=== PATIENT | male | born 1985 | race Caucasian/White ===

== ENCOUNTER 2016-11-08 13:15 | Inpatient (IN) | payer OTHER ==
[~2016-11-08] VITALS: Ht 175.3 cm; Wt 117.5 kg
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
--- NOTE | 2016-11-08 13:55 | NUR ---
31 YEAR OLD MALE BIBA FROM HOME ACCOMPANIED BY JENNIFER FLOOD. PER LEGAL BILLER PT FATHER CALLED BECAUSE PT WAS YELLING AND PRESENTING WITH BIZARRE BEHAVIOR. PT ARRIVES TO ED ALERT WITH HANDCUFFS. PT COOPERATIVE WITH HOSPITAL STAFF TO CHANGE INTO BLUE SCRUBS. PT PLACED IN 4 POINT RESTRAINTS, EDUCATION DONE WITH PT REGARDING WHEN RESTRAINTS CAN BE REMOVED. PT LAYING ON STRETCHER WITH HIS EYES CLOSED, MEDICATED PER EMAR.
[2016-11-08 14:21] LABS: ABSOLUTE BASOPHIL COUNT 0 /CUMM (0.0-0.2); ABSOLUTE EOSINOPHIL COUNT 0.1 /CUMM (0.0-0.7); ABSOLUTE GRANULOCYTE CT 9.2 /CUMM (1.4-6.5); ABSOLUTE LYMPH COUNT 1.6 /CUMM (1.2-3.4); ABSOLUTE MONOCYTE COUNT 0.9 /CUMM (0.10-0.60); BASOPHIL % 0.2 % (0.0-2.0); EOSINOPHIL % 0.8 % (0-5); GRANULOCYTE % 77.7 % (42.2-75.2); HEMATOCRIT 46.5 % (42-52); MEAN CORPUSCULAR HGB 30.3 PG (27.0-31.0); MEAN CORPUSCULAR HGB CONC 33.5 G/DL (33.0-37.0); MEAN CORPUSCULAR VOLUME 90.4 FL (80.0-94.0); MEAN PLATELET VOLUME 6.8 FL (7.4-10.4); PLATELET COUNT 280 /CUMM (130-400); RBC DISTRIBUTION WIDTH 12.4 % (11.5-14.5); RED BLOOD CELL CT 5.14 /CUMM (4.70-6.10); WHITE BLOOD CELL COUNT 11.8 /CUMM (4.8-10.8)
[2016-11-08 14:36] LABS: LITHIUM 0.2 mmol/L (0.6-1.2)
--- NOTE | 2016-11-08 15:27 | NUR ---
PT NOTED TO BE SLEEPING, EVEN, REGULAR RESPIRATIONS NOTED. RESTRAINTS DISCONTINUED AT THIS TIME. PT OPENED EYES TO VERBAL STIMULI BUT HAS NOT VERBALLY RESPONDED TO THIS RN.
--- NOTE | 2016-11-08 16:07 | NUR ---
PT FAMILY TO BEDSIDE WITH SOBIA SANCHEZ. PT CONTINUES TO SLEEP ON STRETCHER, OFFERS NO COMPLAINTS AT THIS TIME.
--- NOTE | 2016-11-08 17:21 | NUR ---
PT FATHER OSMAN LEFT NUMBER TO CONTACT WITH UPDATES [phone]. PT SISTER GEORGE [phone]. PT CONTINUES TO SLEEP ON STRETCHER, SITTER CONTINUES AT BEDSIDE FOR SAFETY.
--- NOTE | 2016-11-08 18:08 | NUR ---
ASSUMED CARE OF PT. PT IN ROOM 13. PT ASLEEP, EASILY AROUSABLE.
--- NOTE | 2016-11-08 18:45 | NUR ---
PT AWAKE FOR VITALS, COMPLAINS OF HIS BONES HURTING. PT CALM AND COPERATIVE AT THIS TIME. SITTER REMAINS.
--- NOTE | 2016-11-08 18:52 | NUR ---
PER SAFETY MONITOR. PT UP TO BATHROOM. DID NOT OBTAIN URINE SPECIME
--- NOTE | 2016-11-08 21:34 | NUR ---
PT CONTINUES TO SLEEP. RESPIRATIONS EVEN AND UNLABORED
--- NOTE | 2016-11-08 21:39 | NUR ---
EASILY AROUSABLE. VITALS TAKEN. PT REMINDED WE NEED URINE SPECIMEN. INFORMED DINNER IS AVAILABLE TO HIM. PT GOING BACK TO SLEEP
--- NOTE | 2016-11-08 23:02 | NUR ---
ASSUMED CARE OF PT PER TOI MILIAN. PT SLEEPING WITH RR, TOSSING AND TURNING. SITTER IN PLACE AT DOOR, WILL CONTINUE TO MONITOR
--- NOTE | 2016-11-08 23:03 | NUR ---
PT AND SITTER ARE INFORMED THAT URINE SAMPLE IS NEEDED.
--- NOTE | 2016-11-09 00:13 | NUR ---
PT SLEEPING, REGULAR RESPIRATIONS NOTED. SITTER REMAINS IN ATTENDANCE
--- NOTE | 2016-11-09 00:52 | NUR ---
PT IN RM UP AND EATING DINNER, PT GIVEN WATER BOTTLES AND PT AWARE WE NEED A URINE SAMPLE.
--- NOTE | 2016-11-09 01:38 | NUR ---
PT COUGHING AND SPITTING ON GROUND, THIS RN GAVE PT A PITCHER OF WATER AND ROBITUSSIN AC 10ML PER EMAR.
--- NOTE | 2016-11-09 01:54 | NUR ---
RANDI REPORTS PT TO BE AGITATED AND SPEAKING LOUDLY WAKING THE OTHER PSYCH PTS UP, THIS RN WENT AND SPOKE WITH PT, KONG PETERSON GAVE PT MAGAZINES TO READ. THIS RN OFFTERED PT TV BUT PT STATED HE WOULD LIKE TO READ.
--- NOTE | 2016-11-09 03:08 | NUR ---
PT UP WALKING ABOUT RM, SPITTING ON FLOOR. WILL CONTINUE TO MONITOR, SITTER IN PLACE IN
--- NOTE | 2016-11-09 03:23 | NUR ---
PATIENT CONTINUES TO SPIT ON FLOOR AND INTO BUCKET ON FLOOR. PATIENT UNABLE TO BE VERBALLY DEESCALATED AT THIS TIME. SECURITY AND MD TO BEDSIDE. PATIENT REQUESTING MULTIPLE PITCHERS OF WATER, COMING IN AND OUT OF ROOM MULTIPLE TIMES DESPITE REDIRECTION AND SETTING LIMITS BY STAFF (THIS RN AND GABBIE RN). PATIENT MEDICATED PER EMAR BY GABBIE AND JEREMIAH. SITTING ON BED W/ SECURITY AND SITTER AT BEDSIDE, PATIENT REMAINS VERY AGITATED. WILL CONTINUE TO MONITOR.
--- NOTE | 2016-11-09 04:44 | NUR ---
PT SNORING WITH RR, SLEEPING ON LEFT SIDE. SITTER IN PLACE, WILL CONTINUE TO MONITOR
--- NOTE | 2016-11-09 05:23 | NUR ---
PT SLEEPING WITH RR, SNORING AND SLEEPING NOW ON RIGHT SIDE. SITTER IN PLACE, WILL CONTINUE TO MONITOR
--- NOTE | 2016-11-09 06:26 | NUR ---
PT SLEEPING WITH RR, TOSSING AND TURNING, SNORING. CHEST RISE AND FALL NOTED. PT INFORMED BREAKFAST WAS ORDERED. SITTER IN PLACE IN
--- NOTE | 2016-11-09 08:18 | NUR ---
CRISIS AT BEDSIDE.
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
--- NOTE | 2016-11-09 09:02 | NUR ---
DR. CHAPARRO AWARE PT IS TACHYCARDIC. EKG TO BE DONE.
--- NOTE | 2016-11-09 09:39 | NUR ---
PT CALM AND COOPERATIVE, DENIES SI OR HI. EKG DONE FOR TACHYCARDIA. DR. CHAPARRO AWARE. PER ORDER, IV EST, NS LITER BOLUS INFUSING NOW. WILL CONTINUE TO MONITOR.
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
--- NOTE | 2016-11-09 11:56 | NUR ---
PATIENT SHOWERED AND BED CLEANED WITH NEW LINEN
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
--- NOTE | 2016-11-09 12:27 | NUR ---
PT CONTINUES TO COME OUT OF ROOM AND NEEDS TO BE CONTINUALLY REDIRECTED TO RETURN TO ROOM.
--- NOTE | 2016-11-09 14:15 | NUR ---
REPORT GIVEN TO UMER CM.
[2016-11-09 14:51] VITALS: BP 157/79
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
[2016-11-09 19:46] VITALS: BP 158/96
[2016-11-09 21:25] VITALS: BP 153/81
--- NOTE | 2016-11-09 21:57 | NUR ---
Pt is irritable and intrusive towards his peers and staff. Pt affect is flat came for vital signs appetite is good. Pt has behavioral issues during the nenita shift. Will continue to monitor the pt overnight.
--- NOTE | 2016-11-09 23:53 | NUR ---
DURING WRAP UP, PT LEANING BACK IN HIS CHAIR AND FELL TO FLOOR. NO INJURY NOTED OR REPORTED. PER AMIAgustín MHW, PT, AND OTHER PATIENTS PRESENT, PT DID NOT HIT HEAD EITHER. DR MA AND DR AMOS MADE AWARE. POST FALL ASSESSMENT NORMAL. PT ASSESSED BY DR AMOS. NO ORDERS PERTAINING TO FALL. HOWEVER, PT WITH AN OPEN BLISTER ON INSIDE OF RIGHT HAND WHICH DR AMOS SAID SHE WOULD ORDER TYLENOL INSIDE OF HAND SORE. (BLISTER PRESENT PRIOR TO FALL) WITH INCREASINGLY DISRUPTIVE AND PSYCHOTIC BEHAVIOR. SHOUTING OUT, MAKING ANIMAL LIKE SOUNDS, STARING, MAKING DELUSIONAL STATEMENTS, RESPONDING TO INTERNAL STIMULI. APPEARS TO BE STRUGGLING WITH WHAT IS REALITY AND WHAT ISN'T. WOULD QUESTION IF SOUNDS OR WORDS SPOKEN ON UNIT WERE ACTUALLY OCCURING. HAD PERIODS OF MENTAL CLARITY BUT WOULD QUICKLY REVERT BACK TO PSYCHOTIC STATE. THOUGHT BLOCKING NOTED. PT ANXIOUS AND RESTLESS. PT PUT ON 1:1 FOR SAFETY. CHARGE NURSE ADMINISTERED ZYPREXA 5MG PRN AND RECEIVED ANOTHER ORDER FROM DR MA FOR ATIVAN 2 MG PO WHICH WAS ALSO ADMINISTERED. DUE TO MINIMAL EFFECT IN MANAGING AGITATION AND PSYCHOSIS, THORAZINE 25MG ADMINISTERED PER DR MA. PER DR MA THORAZINE MAY BE ADMINISTERED AFTER 30 MINUTES IF AGITATION CONTINUES.
--- NOTE | 2016-11-10 00:17 | NUR ---
PT NOW SLEEPING. SITTER AT BEDSIDE.
--- NOTE | 2016-11-10 04:38 | NUR ---
0015 PT WAS FAST ASLEEP AFTER MEDICATION GIVEN AT 2345.
[2016-11-10 06:13] VITALS: BP 152/86
--- NOTE | 2016-11-10 06:19 | NUR ---
0545 PT AWAKE GETTING DRESSED WALKING OUT OF HIS ROOM WITH SITTER AND MHW WANTING WATER, WALKED INTO KITCHEN TOOK OUT A PLASTIC KNIFE OUT OF THE DRAW ATTEMPTED BY STAFF TO REMOVE FROM PT. HE REFUSED SECURITY CALLED PT. BECOMING AGITATED PUSHING STAFF YELLING SPITTING THORAZINE 25MG IM GIVEN. 0600 DR. MA CALLED ORDERED 4 POINT RESTRAINTS ATIVAN 2MG AND HALDOL 2.5MG ALL ORDERS FOLLOWED. VSS 152/86 HR 120 TEMP 97.8 EXPLAINED TO PT. THE NEED FOR ALL INTERVENTIONS AT THIS TIME UNTIL HIS BEHAVIOR IS UNDER CONTROL. PT CONTIUES TO YELL OUT SINGING CONVERSTAION CONFUSED.
--- NOTE | 2016-11-10 06:24 | History & Physical ---
General Information and HPI MD Statement: I have seen and personally examined OSMAN AGUAYO JR and documented this H& P. The patient is a 31 year old M who presented with a patient stated chief complaint of [medical evaluation]. Source of Information: patient Exam Limitations: unable to give history, clinical condition History of Present Illness: Patient is admitted in Inpatient Psychiatry for screaming, incoherent talking, agitation. Patient has history of schizoaffective disorder, PTSD. When I examined patient he had intermittent stating spells, sometimes responding appropriately otherwise no appropriate answers. After admission in Inpatient Psychiatry patient had accidental fall, while he was sitting on a chair he pushed the chair with his legs and fell backwards, no obvious trauma or injury. Patient denies any pain, headache, dizziness, blurry vision, loss of consciousness. Complete 14 point ROS noncontributory. Patient complains of pain near superficial denuded skin on her right palm. 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 Home Smoking Status: Never Smoked ETOH Use: denies use Illicit Drug Use: denies illicit drug use Living Will? unknown Functional Ability ADLs Independent: dressing, eating, toileting, bathing. Ambulation: independent Sexual History Past Sexual History Unobtainable at this time Employment History Employment Employed Profession/Employer [employer] Review of Systems Review of Systems Constitutional: Reports: no symptoms. EENTM: Reports: no symptoms. Cardiovascular: Reports: no symptoms. Respiratory: Reports: no symptoms. GI: Reports: no symptoms. Genitourinary: Reports: no symptoms. Musculoskeletal: Reports: no symptoms. Skin: Reports: lesions (on right hand). Neurological/Psychological: Reports: no symptoms. Hematologic/Endocrine: Reports: no symptoms. Exam & Diagnostic Data Last 24 Hrs of Vital Signs/I&O Vital Signs Date Time Temp Pulse Resp B/P Pulse O2 O2 Flow FiO2 Ox Delivery Rate 11/10 0613 97.8 120 18 152/86 99 11/09 2125 97.1 100 18 153/81 11/09 1946 98.8 72 158/96 11/09 1451 96.9 88 157/79 11/09 1358 96.1 91 18 142/79 96 Room Air 11/09 1334 96.6 103 18 149/84 98 Room Air 11/09 1104 96.5 96 18 140/81 97 Room Air 11/09 0844 96.5 120 18 142/88 99 Room Air 11/09 0624 97.5 118 20 117/73 100 Room Air Intake & Output 11/09 1600 11/10 0000 11/10 0800 Intake Total Output Total Balance Patient 117.48 kg 117.48 kg Weight Physical Exam General Appearance Alert, Oriented X3, No Acute Distress Skin small denuded area on her right forearm, no evidence of infection, mild tenderness, nearby joint mobility intact. HEENT Atraumatic, PERRLA, EOMI, Mucous Membr. moist/pink Neck Supple, No JVD, No thryomegaly, +2 Carotid Pulse wo Bruit Lymphatic Cervical nl Cardiovascular Regular Rate, Normal S1, Normal S2, systolic murmur in pulmonary area Lungs Clear to Auscultation, Normal Air Movement Abdomen Normal Bowel Sounds, Soft, No Tenderness, No Hepatospenomegaly, No Masses Neurological Exam Findings: Normal Gait, Normal Speech, Strength at 5/5 X4 Ext, Normal Tone, Sensation Intact, Cranial Nerves 3-12 NL, Reflexes 2+ Cranial Nerves II through XII: Intact, no deficit Extremities No Clubbing, No Cyanosis, No Edema, Normal Pulses, No Tenderness/ Swelling Vascular Normal Pulses, Pulses Symmetrical Diagnostic Data EKG Results Reviewed Assessment/Plan Assessment: #1 suspected schizoaffective disorder: Agree with psychiatrist treatment #2 mechanical fall: No obvious trauma, neurological examination intact. #3 small lesion on right palm: No evidence of infection, when necessary Tylenol for pain As Ranked By This Provider Problem List: 1. Psychosis 2. Schizoaffective disorder Miscellaneous Miscellaneous Documentation Attending Case Discussed With: GEETA CHACON MD Primary Care Physician: ANDREIA CLARK Patient sees these Specialists Not known Level of Patient Care: ADAMA Oneil
--- NOTE | 2016-11-10 06:53 | Admission Certification ---
Admission Certification Certification Statement - As attending physician, I certify that at the time of - admission, based on clinical presentation, severity of - symptoms, need for further diagnostic testing and - therapeutic interventions, and risk of adverse outcomes - without in-hospital treatment, in my clinical assessment, - this patient requires an acute hospital stay for a minimum - of two nights or longer. I have also considered psychsocial - factors such as support system, advanced age, financial - issues, cognitive issues, and failed out-patient treatments, - past re-admission history, safety of patient, and lack of - compliance as applicable. Specific rationale supporting this admission is: psychosis
--- NOTE | 2016-11-10 07:08 | NUR ---
FACE TO FACE AT 0700 PT. LESS AGITATED WHEN ASKED IF HE IS FEELING A LITTLE BETTER REPLIED "YES". B/P 149/88 HR 106 RR 20 TEMP 97.8. SITTER REMAINS AT BEDSIDE CIRCULATION CHECK ALL FOUR EXTREMITIES WNL. ABLE TO MOVE EXTREMITES. PT ASSISTED TO VOID AND URINATED IN URINAL. EXPLAIN TO PT. WHEN BEHAVIOR IS APPROPRIATE HE WILL BE RELEASED.
[2016-11-10 07:14] VITALS: BP 149/88
--- NOTE | 2016-11-10 07:32 | NUR ---
0715 NOTIFIED PT. FATHER OSMAN AGUAYO REGARDING NEED FOR RESTRAINTS AND MEDICATIONS. PT. AGREED WE NEED TO DO WHAT IS SAFE FOR PT. AND THE UNIT. WILL BE IN TO SEE PT. LATER TODAY.
[2016-11-10 12:17] VITALS: BP 126/99
--- NOTE | 2016-11-10 13:10 | CP SOUTH PROGRESS NOTE PSYCH ---
Psych (Inpt) Progress Note Progress Note Include the following elements, when applicable: Involvement in the active treatment of the patient with behavioral observations of the patient and the patient's response to the treatment. Review of the ongoing treatment process in the context of the treatment plan. Indication of how multi-disciplinary staff members are carrying out the treatment plan. Plans for future interventions and recommendations for revision of the treatment plan. Liaison with other physicians/providers. Progress Note: Admission documentation reviewed, and discussed with nursing staff. Joselo is a 31-year-old man with history of schizoaffective disorder who was admitted to the unit yesterday afternoon for psychiatric decompensation marked by psychosis and agitated behavior. On the unit he became increasingly agitated with disturbed thought process, became threatening, requiring acute administration of medications. Upon awakening this morning he continued to threaten staff and others, spat at others, was not redirectable, and ultimately required application of restraints for patient's safety and the safety of others on the unit. On my assessment this afternoon, the patient is mildly sedated, intermittently awake, however during those periods the patient remains highly tangential, pressured, and is unable to understand the requirements for being completely restraint free. That being said, we are attempting to reduce his level of restraint as clinically appropriate. He is unable to meaningfully engage in a psychiatric interview at this time. MSE: Poorly groomed, overweight, man dressed in overalls, supine on hospital bed in leather restraints. When he is awake, he is uncooperative, with poor eye contact. His speech is garbled. He does not respond to questions regarding mood. His affect is bizarre, and labile. His thought processes tangential bordering on loose, thought content is difficult to decipher, cognition is not intact, and insight and judgment are poor. Vitals and labs reviewed. Vitals are most notable for persistent mild tachycardia but he is otherwise afebrile with normal blood pressure and appropriate respiration rate. There are no new laboratory results today, lithium level of less than 0.2 noted on admission. EKG was obtained today and notable for a QTC in the 450s, and a rhythm of sinus tachycardia. A/P: 31-year-old man with history of schizoaffective disorder, presenting with symptoms consistent with acute gustavo in the context of discontinuation of his outpatient medications. -For acute gustavo, will continue Zyprexa and Ativan as needed based on clinical symptoms. Concurrently, will uptitrate lithium carbonate, currently at 450 mg twice a day. If requires IM medications because refusing PO, will administer haldol and ativan. -For tachycardia, this is most likely the result of reduced by mouth intake given his psychiatric status. We will continue to attempt to hydrate him by mouth and monitor his vitals closely. As above, there is no EKG suggestion of a more nefarious cause of his tachycardia at this time. -Will attempt to use both nonpharmacological and pharmacological interventions to reduce or eliminate the need of restraints. He will be removed from restraints as soon as it is deemed safe to both the patient and others on the unit. -Vital signs and other clinical indices will be continuously reviewed all patient is in restraints. We'll continue the one-to-one sitter while patient is in restraints as well as in the early post restraint for safety. -Family was updated regarding patient's clinical situation by nursing staff.
--- NOTE | 2016-11-10 13:13 | NUR ---
1:1 maintained throughout shift thus far for safety and order was changed to male only d/t past history of aggression and intensity. Pt has been consistently offered and given fluids, breakfast, lunch, provided a urinal and offered bed farias when applicable (did refuse this however). At 1000am order was renewed and EKG perform and Dr. Catalan saw pt in room & EKG with no further orders at that time. At about 12:15pm vital signs: b/p 126/99, hr 116, temp 97.[address] Catalan aware and fluids/water pushed. Due to pt gradually becoming more calm, cooperative, compliant and some clearing noted, restraints decreased (in a safe manner) from 4 point to 2 point @ 12:15pm, MD aware and new order placed and documented. Pt demonstrating +CMS, tightness of restraint cuffs appropriate, no complaints offered, no injuries noted or reported, + active ROM.
--- NOTE | 2016-11-10 13:57 | NUR ---
Pt laying in bed, able to adjust self and verbalize needs, current has 1 hard right wrist restraint and one hard left leg restraint, provided fluids, food, urinal and bed farias throughout, no complaints or injuries reported or noted. + CMS, + active ROM, vital stable within defined limits and MD aware with no further orders. Pt remains delusional - when evaluating the pt for need to continue 2 point restraints pt would answer questions in a slightly agitated fashion, tangential, disorganized/disturbed process and team is overall unable to accurate stanislaw intent/motivation/ if the patient understands what actually would constitutes safe boundaries, limits and behavior nevermind what actual caused the application of the restraints. Dr. Catalan was present during the 1400 [id number] as well and in agreeance with both RNs to leave the pt in 2 point restraints at this time d/t the above state and will continue to monitor and re-assess ongoing.
--- NOTE | 2016-11-10 15:34 | NUR ---
PATIENT REMOVED WRIST RESTRAINT. PHYSICALLY RESISTED ATTEMPTS TO REAPPLY, GRABBED THIS WROTERS HAND SEVERAL TIMES WHILE ATTEMPTING TO REAPPLY RESTRAINT SECURITY CALLED AND PRVIDED ASSISTANCE, RESTRAINT REAPPLIED WITHOUT FURTHER INCIDENT.
[2016-11-10 16:29] VITALS: BP 138/70
[2016-11-10 20:01] VITALS: BP 154/86
--- NOTE | 2016-11-10 21:05 | NUR ---
AT [address] MA PATIENT RESTRAINTS WERE DISCONTINUED, HE WAS LYING QUIETLY AND WAS COMPLIANT WITH STAFF ORDERS; HE WAS CALM AND COOPERATIVE WITH VITAL SIGNS. HOWEVER, WHEN PATIENT STOOD UP HE WAS EXTREMELY UNSTEADY ON HIS FEET, SWAYING AT TIMES; WITH STAFF ASSISTANCE HE WALKED TO THE BATHROOM AND URINATED AND HAD A BOWEL MOVEMENT; HE THEN ATE HIS DINNER AND BRUSHED HIS TEETH; DURING THESE ACTIVITIES THE PATIENT HAD TO BE CONTINUALLY REMINED TO WALK SLOWLY AND WAS INCREASILY ERRATIC IN HIS MOVEMENTS, SWAYING AT TIMES; AT 2044 PATIENT SUDDENLY RAN TOWARDS HIS SITTER, DODGED HIM, AND RAN INTO HIS ROOM; THE PATIENT WAS INSTRUCTED BY STAFF TO LIE DOWN AND TRY TO SLEEP DUE TO HIS FALL RISK; HE LIED DOWN BRIEFLY BUT POPPED BACK UP AND WAS NOT RESPONDING TO STAFF DIRECTIONS FOR HIS SAFETY; AT THIS POINT PATIENT WAS PLACED BACK IN FOUR POINT RESTRAINTS WITH THE HELP OF THE 1:1 SITTER AND SECURITY STAFF; DR. MA GAVE THE ORDER FOR FOUR POINT RESTRAINTS; VITAL SIGNS AT 1999 WERE STABLE; SKIN INTACT; RESPIRATORY STATUS WNL WITH EVEN REGULAR RESPIRATIONS, BUT SLIGHTLY FAST AT 24 BREATHS PER MINUTE; PATIENT WILL BE MONITORED CAREFULLY FOR ANY CHANGES IN MEDICAL STATUS.
--- NOTE | 2016-11-10 21:48 | NUR ---
FACE TO FACE ENCOUNTER: PATIENT IN FOUR POINT HARD RESTRAINTS, RESTLESS, CONFUSED; FLUIDS GIVEN AFTER PATIENT YELLED "NURSE!" AND REQUESTED WATER; AFTER BEING GIVEN WATER, PATIENT ASKED FOR "NURSE!" AGAIN, BUT WAS MUMBLING, AND DID NOT RESPOND TO STAFF COHERENTLY; PATIENT CURRENTLY STABLE; 4 POINT RESTRAINTS COINTUING FOR SAFETY OF PATIENT AND OTHERS.
--- NOTE | 2016-11-10 22:32 | NUR ---
PATIENT YELLING OUT, SINGING INCOHERENTLY. PRN MEDICATIONS WILL BE GIVEN.
--- NOTE | 2016-11-11 00:12 | NUR ---
PATIENT STILL YELLING AT TIMES, NOT RESPONDING WELL TO STAFF ATTEMPTS TO REDIRECT; HE PULLED HIS ARM OUT OF ONE OF HIS RESTRAINTS; RESTRAINT TIGHTNESS WAS READJUSTED, CIRCULATION CHECK DONE; PER ORDER FROM DR. MA, THORAZINE 100MG PO AND 50MG BENADRYL PO WERE GIVEN, WITH A SECOND THORAZINE DOSE AVAILABLE AFTER 2 HOURS IF THE PATIENT BECOMES AGITATED; PATIENT COMPLIANT WTIH TAKING MEDICATION; 1:1 SITTER MONITORING AT ALL TIMES
--- NOTE | 2016-11-11 01:50 | NUR ---
PER ORDER OF DR. MA, RESTRAINTS REDUCED TO LEFT WRIST AND RIGHT ANKLE, PATIENT IS CALM, AND IS NO LONGER YELLING; HE IS RESTING AT THIS TIME; WHEN AWAKE HE IS STILL CONFUSED, MAKING INCOHERENT STATMENT, AND IS UNABLE TO CONTRACT FOR SAFETY WITH STAFF, OR FOLLOW BASIC SAFETY DIRECTIONS TO PROTECT HIMSELF DUE TO HIS HIGH FALL RISK STATUS; CIRCULATION CHECK DONE; SKIN INTACT; PATIENT RESPIRATORY STATUS WNL.
--- NOTE | 2016-11-11 03:13 | NUR ---
PATIENT STILL MUMBLING INCOHERENTLY AT TIMES, NOT ABLE TO RECEIVE AND PROCESS RESTRAINT DISCONTINUATION CRITERIA.
--- NOTE | 2016-11-11 05:37 | NUR ---
TWO WAY RESTRAINT ORDER RENEWED WITH DR. MA, PATIENT REMAINS CONFUSED AND UNABLE TO RESPOND TO STAFF SAFETY INSTRUCTIONS PER CRITERIA FOR RELEASE; RESPIRATORY STATUS WNL, SKIN INTACT, NORMAL RANGE OF MOTION IN ALL FOUR LIMBS, +2 CIRCULATION TO ALL FOUR LIMBS; 1:1 SITTER MONITORING AT ALL TIMES.
--- NOTE | 2016-11-11 07:07 | NUR ---
PATIENT SAT UP MUCH POSSIBLE AND TRIED TO GET UP OFF OF THE BED DESPITE THE TWO WAY RESTRAINTS, STILL APPEARS SEDATED, FELL BACK ASLEEP IMMEDIATELY AFTER STAFF ASSISTED HIM BACK ONTO THE BED.
[2016-11-11 08:11] VITALS: BP 151/88
--- NOTE | 2016-11-11 09:07 | NUR ---
after conversation with patient by both RN's present on unit it was felt that restraints could be discontinued. Was able to verbalize and agree to follow directions from staff and be responsible for his own behaviors. Verbalized understanding that running is not allowed at any time on unit and screaming is not an appropriate behavior. Is A&Ox3 and has been compliant with all medications. He offered and shook hands with this telegraphic typewriter operator which seemed an appropriate response based on what is known aboout patients character. Discussed same with Dr. Catalan who is on-call psychiatrist. 1:[address] in [address].
--- NOTE | 2016-11-11 10:19 | CP SOUTH PROGRESS NOTE PSYCH ---
Psych (Inpt) Progress Note Progress Note Include the following elements, when applicable: Involvement in the active treatment of the patient with behavioral observations of the patient and the patient's response to the treatment. Review of the ongoing treatment process in the context of the treatment plan. Indication of how multi-disciplinary staff members are carrying out the treatment plan. Plans for future interventions and recommendations for revision of the treatment plan. Liaison with other physicians/providers. Progress Note: Chart reviewed, discussed progress with nursing staff. Interviewed patient this morning. Yesterday evening and overnight patient remained manic, highly disregulated, grandiose, hypersexual, screaming in the milieu. His thought process evidenced significant paranoid ideation. Throughout yesterday afternoon and evening he required significant amounts of neuroleptic and benzodiazepines to control his behavior and reduce the risk of his harming himself and others on the unit. His behavior improved into the evening, restraints were able to be reduced to 2 points, and this morning, the patient was more lucid, cooperative, was able to verbalize his understanding of requirements for coming out of the restraints and remaining out of restraints. Restraints were removed this morning. Joselo remains somewhat sedated and groggy, and continues to have a one-to-one safety monitor. On interview today, Joselo is remarkably less labile, grandiose, or delusional. He is oriented to name and place. His able to appropriately make his needs known. He currently demonstrates no evidence of agitation. He denies specific medication side effects aside from grogginess. He denies SI or HI, and denies overt psychotic symptoms. MSE: Adequately groomed overweight man wearing hospital scrubs, ambulating with walker. Cooperative with interview, good eye contact, speech was not pressured, normal volume, prosody, tone, amount. Mood was "okay ", affect was mildly constricted, but full range, non-labile. Thought process was mildly impoverished. Content without SI or HI. Denies current perceptual disturbances. Cognition he was grossly alert and oriented to name and place. His insight and judgment remain limited. Vitals reviewed. These are notable for persistent mild tachycardia and mild hypertension. His respiratory rate was noted to be mildly elevated overnight with normal oxygen saturation. There are no new laboratory results today. A/P: Most likely explanation for symptoms and behavior over the past few days remains acute manic episode. Will continue to manage symptoms of gustavo with neuroleptic and benzodiazepines, as lithium is up titrated. Will schedule Zyprexa and Ativan for now, with additional Zyprexa and Ativan as needed for agitation, and use Thorazine for severe agitation requiring prompt sedation to maintain patient and unit safety. Will continue lithium with the evening dose larger than the morning dose. Goal Will be to keep patient engaged in the milieu, safe, out of restraints. Continue one-to-one safety monitor for now. Check lithium level Saturday or morning.
[2016-11-11 12:13] VITALS: BP 156/96
--- NOTE | 2016-11-11 14:07 | NUR ---
PATIENT CONTINUES TO DO WELL. GIVEN PRN FOR SOME BRIEF ACTING OUT. NEEDS REDIRECTION AT TIMES WITH GOOD RESPONSE. DENIED THOUGHTS OF SELF HARM WHEN ASKED.
[2016-11-11 15:44] VITALS: BP 159/92
[2016-11-11 19:47] VITALS: BP 153/82
--- NOTE | 2016-11-11 20:17 | NUR ---
PT. OUT IN COMMUNITY COOPERATIVE TALKING WITH STAFF SITTER BY HIS SIDE. VSS, STARTED TO GET A LITTLE LOUD MEDICATED WITH ATIVAN AND ZYPREXA AND EXPLAINED JUST TO RELAX HE AGREED IT WAS NEEDED STATED" FEELING A LITTLE ANXIOUX".
--- NOTE | 2016-11-12 01:41 | NUR ---
183 PT. STATING HE WAS FEELING ALITTLE ANXIOUS MEDICATED WITH ATIVAN 2MG AND ZYPREXA 5MG PO. 1929 PT. SLEEPING SITTER AT BEDSIDE. 2229 PT. BEGAN TALKING LOUD GETTING RESTLESS MEDICATED WITH ATIVAN 2MG AND ZYPREXA 5MG PO. 2329 PT. WENT BACK TO ROOM QUIET. 0 PT. AWAKE TO BATHROOM CONFUSED REFUSING TO GO BACK TO ROOM AMBULATING AROUND THE UNIT SITTER REMAINS BY SIDE NOT DUE FOR ATIVAN AND ZYPREXA MEDICATED WITH THORAZINE 50MG PO AND ENCOURAGED PT. TO GO BACK TO ROOM TO SLEEP.
--- NOTE | 2016-11-12 03:13 | NUR ---
0300 PT FINALLY FELL ASLEEP IN TV ROOM "CAN"T SLEEP IN THE BED TO UNCOMFORTABLE" SITTER AT SIDE.
--- NOTE | 2016-11-12 04:03 | NUR ---
0300 PT. SLEPT FROM [id number] THEN AGAIN GETTING A LITTLE LOUD 0355 MED WITH ATIVAN 2MG AND ZYPREXA 5MG PO.
[2016-11-12 07:42] VITALS: BP 150/94
--- NOTE | 2016-11-12 11:55 | CP SOUTH PROGRESS NOTE PSYCH ---
Psych (Inpt) Progress Note Progress Note Include the following elements, when applicable: Involvement in the active treatment of the patient with behavioral observations of the patient and the patient's response to the treatment. Review of the ongoing treatment process in the context of the treatment plan. Indication of how multi-disciplinary staff members are carrying out the treatment plan. Plans for future interventions and recommendations for revision of the treatment plan. Liaison with other physicians/providers. Progress Note: [I discussed this patient's progress to date, current mental status, treatment process in the context of the treatment plan, and discharge planning with staff/ team in the daily morning inpatient team meeting. I also met with the patient myself in individual session.] SUBJECTIVE: "Hi, your hair smells good." OBJECTIVE: Current Medications Sig/Rosita Start time Last Medication Dose Route Stop Time Status Admin Chlorpromazine 50 MG Q4P PRN 11/11 1000 DC 11/12 PO 0140 Inger Carbonate 300 MG 0811/12 0800 AC 11/12 PO 0801 Inger Carbonate 600 MG AT BEDTIME 11/11 2200 AC 11/11 PO 2110 Lorazepam 1 MG TID 11/12 1000 AC 11/12 PO 0801 Lorazepam 2 MG TID 11/10 2200 DC 11/11 PO 11/12 0005 2110 Lorazepam 2 MG Q4-PRN PRN 11/10 1715 AC 11/12 PO 1105 Olanzapine 10 MG 11/13 0800 AC PO Olanzapine 5 MG 0811/12 0800 DC 11/12 PO 0801 Olanzapine 10 MG AT BEDTIME 11/11 2200 AC 11/11 PO 2110 Olanzapine 5 MG Q4 HRS NEEDED PRN 11/10 1715 AC 11/12 PO 1105 Vital Signs Date Time Temp Pulse Resp B/P Pulse O2 O2 Flow FiO2 Ox Delivery Rate 11/12 1217 92 151/95 11/12 0742 97.4 92 150/94 11/11 1947 97.6 92 153/82 11/11 1544 100 159/92 ASSESSMENT: Chart, labs, EKGs reviewed. Patient is a 31-year old, single, male with history of schizoaffective disorder who was admitted to [facility] from ED on 11/09/16 for psychiatric decompensation marked by psychosis and agitated behavior secondary to medication nonadherence. Over the weekend, the patient was agitated and threatening and required 4-point locking restraints and emergency medications for safety to self and others. Outpatient medications (prescribed by Dr. Gibson per med claim history): Inger 300mg BID (pt reported self-d/c'ed d/t wt gain/increased appetite) Zyprexa 5mg daily (stopped) Per MAR, patient receives the following medications over the weekend for stabilization: 11/09/16 ( ED): Haldol 5mg IM, Benadryl 50mg IM, Ativan 4mg (2mg IM and 2mg PO) . 11/10/16: Zyprexa 25mg (po/ divided doses/ prn + standing), Ativan 8mg (po/ divided doses/ prn + standing). 11/11/16: Zyprexa 25mg (po/ divided doses/ prn + standing), Ativan 10mg (po/ divided doses/ prn + standing), Thorazine 150mg (po/divided doses/ prn). On encounter today, patient observed sitting in room in good physical/behavioral control. Male 1:1 sitter standing outside room. Patient was A&O to person, place , time and situation. Reported being brought to ED by police after his cousin called the police because she was scared as patient had been "blessing the house " per pt report. Patient could not identify why he was blessing his cousin's house, or other events leading to him being brought to ED by police. Reported he was handcuffed and roughly handeling by police. He pointed to a bruise on his left elbow, which he stated he had received when handled by police. Patient reported he stopped outpatient Inger 300mg BID d/t wt gain and increased appetite. Was unable to connect psychiatric decompensation to self- discontinuing medications. Could not report when he stopped medications. Reported +PI of his neighbor being out to get him, for all of the things him and his father own. He reported it's "the Small thing." He could not elaborate further on statement. Intrusive at times, required appropriate boundary setting. Thought process was overall linear. Thought content was mostly appropriate, despite +PI of neighbor who "is out to get me." Mood was labile - calm through most of interview with spontaneous crying when his mother (of 5 years) was mentioned. He denied auditory and visual hallucinations. Reported sleep and appetite were good. He denied active and passive suicidal ideation, plans and intent. He denied homicidal ideation. Was observed pacing on unit, hyperactive. Perseverated during interview about wanting to sprint on unit "it feels good to move around fast." Instructed patient that he can walk laps on unit, but that running isn't permitted on unit for safety to self and others. Patient verbalized understanding of education. He denied illicit substance use of MJ, cocaine, opiates, bzd, synthetics, hallucinations. Denied tobacco use. Reported occasional alcohol use, 1 x week of approx 3-6 beers in a single occasion. Alcohol counseling was provided to patient. Patient verbalized understanding of counseling. Patient reported tolerating restart of Inger and Zyprexa, and prns of Ativan and Zyprexa well. He denied untoward medication effects. Reported feeling "calm " on medication. He denied physical complaints. Denied SOB, chest pain, diaphoresis, tremor, fever, muscle rigidity, or involuntary muscle movements. AIMS=0. Per nursing staff, patient was able to engage in accupuncture group without any issues. PLAN: 1. Inger level scheduled on 11/14/16 at 0600. 2. Continue Inger 300mg QAM and 600mg QPM. 3. Increase Zyprexa from 5mg QAM and 10mg QPM to 10mg BID. 4. Continue prn Zyprexa 5mg po Q4H for agitation/psychosis as ordered. Will reassess need to continue prn order tomorrow morning. 5. Continue prn Ativan 2mg po Q4H as needed for agitation as ordered. Will reassess need to continue prn order tomorrow morning. 6. Discontinue Thorazine 50mg Q4H as needed for agitation/psychosis. 7. As psychiatric symptoms stabilize, anticipate Ativan taper. 8. Dispo planning per primary team. 9. Obtain MONTSERRAT from Dr. Gibson when patient is agreeable to signing, to obtain collateral on treatment history. 10. Continue male 1:1 sitter OTC for impulsive behaviors, and safety to self and others. 11. Mouth checks following every medication administration. 12. Add-on TSH ordered; Lipid panel and Hemoglobin A1C ordered for tomorrow morning.
--- NOTE | 2016-11-12 12:11 | NUR ---
PT SLIGHTLY AGITATED.ZYPREXA 5MG AND ATIVAN 2MG GIVEN PRN..WILL MONITOR EFFECT
[2016-11-12 12:17] VITALS: BP 151/95
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
--- NOTE | 2016-11-12 14:57 | SOCIAL WORKER TX PLAN PSYCH ---
Treatment Plan - Please Document: - Evidence that there is ongoing collaboration between - the patient and the interdisciplinary team, - including the patient's active participation and - responsibility for engaging in the treatment regimen, - and that the treatment plan is individualized and - relevant to the patient's conditions. - Treatment plan should reflect documentation indicating - that all active therapeutic efforts are included. 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, supportive family, engaged in out pt tx Physical Limitations (Interventions): none reported Patient Identified Trmt Goals: "I am not sure exactly why I am here." Discharge Plan: IOP Problem/Goals #1 Problem #1: psychosis Goal (Short Term): Goal (Care Home): Attend at least 3 groups daily while in the hospital Have familly meeting while in the hospital Explore and resolve issues related to traumatic events in lifetime drawing strength from the event DSM5/PS Stressors/Medical Prob Diagnosis' (DSM 5, Stressors, Medical): F25.0 Schizoaffective Bipolar Type Current GAF: 23 Treatment Team - Responsibilities of members of the treatment team include: - Medication Management- MD or SEISMIC PROSPECTING OBSERVER - Medication Administration and Monitoring- Nurse - Group Therapy- Occupational Therapist - 1:1 Therapy,Disch Planning,family involvement-Coil Winder Strap
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
[2016-11-12 15:39] VITALS: BP 159/88
[2016-11-12 19:51] VITALS: BP 156/86
--- NOTE | 2016-11-12 22:22 | NUR ---
PT IS PACING THE UNIT, AND IS MOSTLY COMPLIANT WITH UNIT RULES. PT IS LOUD AND INAPPROPRIATE AT TIMES, BUT IT MOSTLY COOPERATIVE AND FOLLOWS UNIT RULES. PT CAN AT TIMES BE DISORGANIZED IN SPEECH, UTTERING NON-SENSICAL STATEMENTS, BUT IS ORGANIZED FOR THE MOST PART. PT MOOD IS CHANGES SLIGHTLY AT TIMES, BUT IS MOSTLY STABLE, AFFECT APPEARS FULL RANGE, COMMUNICATION IS AT TIMES DISORGANIZED, AND APPETITE IS NORMAL. PT DENIES SI AT THIS TIME.
--- NOTE | 2016-11-13 04:50 | NUR ---
DR. CHACON CALLED AND ORDER OBTAINED FOR THORAZINE 50MG AND BENADRYL 50MG WHICH WERE TAKEN PO; PATIENT BEHAVIOR WAS GETTING MORE ERRATIC AND AGITATED; HE HAD JUST BANGED LOUDLY ON THE BATHROOM DOOR WITH ONE OF HIS PEERS INSIDE; SECURITY CALLED TO UNIT, WHICH SEEMED TO CALM PATIENT SLIGHTLY; PATIENT CURRENTLY STANDING IN ROOM, RESTLESS BUT COMPLIANT AT THIS TIME.
--- NOTE | 2016-11-13 06:06 | NUR ---
PATIENT NOW SITTING IN KITCHEN, MONITORED BY 1:1 SITTER; PATIENT STILL HAS NOT SLEPT BUT IS CALMER, AND REDIRECTABLE.
[2016-11-13 08:16] VITALS: BP 155/83
[2016-11-13 13:32] VITALS: BP 155/98
--- NOTE | 2016-11-13 14:17 | NUR ---
PATIENT PRESENTS MORE ORGANIZED, ATTENDING AND PARTICIPATING IN MORE GROUPS.INTRUSIVE AT TIMES, RESPONDS TO LIMIT SETTING. MAINTAINED ON 1;1 FOR HIS SAFETY. PATIENT IN FAMILY MEETING TODAY. MED COMPLIANT. BEHAVIOR IMPROVING.
--- NOTE | 2016-11-13 14:25 | PN- Att Addend ---
Attending Addendum Attending Brief Note I was called in to see this patient on Inpatient Psychiatry for the fast heart rate. Patient is admitted with psychosis. He has also been kept on lorazepam. He denies any recent alcohol intake. He denies any palpitations. EKG which was obtained on admission is consistent with sinus tachycardia. Vital Signs Date Time Temp Pulse Resp B/P Pulse O2 O2 Flow FiO2 Ox Delivery Rate 11/13 1332 110 155/98 11/13 0816 96.2 121 155/83 11/12 1951 97.1 116 156/86 11/12 1539 116 159/88 on exam; aox3, nad. cv; s1,s2, rrr, tachycardia. resp; clear. abd; soft, nt, bs+ ext; no edema Laboratory Tests 11/13 11/13 11/13 1330 0609 0609 Chemistry Hemoglobin A1c Pending Triglycerides (<150 mg/dL) 74 Cholesterol (< 200 MG/DL) 99 LDL Cholesterol, Calc (65 - 129 mg/dL) 55 L HDL Cholesterol (40 - 60 mg/dL) 30 L Cholesterol/HDL Ratio (0.00 - 4.88 %) 3 Urines Urine Color Cancelled Urine Clarity Cancelled Urine pH Cancelled Ur Specific [place] Cancelled Urine Protein Cancelled Urine Ketones Cancelled Urine Nitrite Cancelled Urine Bilirubin Cancelled Urine Urobilinogen Cancelled Ur Leukocyte Esterase Cancelled Ur Microscopic Cancelled Urine Hemoglobin Cancelled Urine Glucose Cancelled A/P; 31-year-old male who is admitted with psychosis has sinus tachycardia. Patient's blood pressure is also running high. No known history of any heart problems or hypertension in the past. I will add low-dose beta edin. Patient will need outpatient cardiology workup including cardiology evaluation as well as echocardiogram. Psych management is up to psychiatry.
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
[2016-11-13 16:16] VITALS: BP 154/86
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
[2016-11-13 20:10] VITALS: BP 155/95
--- NOTE | 2016-11-13 21:31 | NUR ---
PT IS AT TIMES DISORGANIZED, BEHAVIOR IS SLIGHTLY ERRATIC. MOSTLY ORGANIZED, AND WHEN NOT CAN BE REDIRECTED. PT IS PACING THE UNIT MOST OF THE TIME. ON ONE TO ONE. PT MOOD IS NOT STABLE, CAN CHANGE RAPIDLY WHEN DISORGANIZED, AFFECT APPEARS TO BE FULL RANGE, COMMUNICATION IS LOUD/DISORGANIZED AT TIMES, APPETITE IS NORMAL. PT DENIES SI AT THIS TIME.
--- NOTE | 2016-11-14 04:40 | NUR ---
AWAKE ALMOST ALL NIGHT MEDICATED WITH BEDANRYL. COOPERATIVE WITH C[facility] PLEASANT.
[2016-11-14 07:39] VITALS: BP 144/80
--- NOTE | 2016-11-14 09:43 | SOCIAL WORKER PROG NOTE PSYCH ---
Social Work Progress Note Progress Note Met with Joselo this morning around 10am, he was in his room, had just received medication from RN. He has been aggitating this morning. He stated he didn't sleep last night, stated he ate thismorning had his "aunt's lyubov." He then became tearful stating he is accepting his Mother' . He appeared to have some disorganzied thinking and responding to internal stimuli. He began taking off his shirt looking for dry clothes. Enocouraged Joselo to rest and lay down, as nursing was doing the same. He remains on 1:1 with a sitter for his safety and others.
--- NOTE | 2016-11-14 11:59 | NUR ---
Pt continues on a 1:1 for safety, can become oppositional and resistive to staff redirection at times and @ about 1000am security was called and present on unit to assist staff in reminding what constitutes as appropriate behavior and what is not. Pt is med compliant and did willing take Zyprexa PRN during this time and is currently resting in room. Presents as labile, with full range affect.
[2016-11-14 12:21] VITALS: BP 159/96
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
[2016-11-14 15:39] VITALS: BP 159/96
[2016-11-14 20:24] VITALS: BP 162/98
--- NOTE | 2016-11-14 21:46 | NUR ---
PT HAS BEEN PACING UNIT THROUGHOUT SHIFT, ORGANIZED AT TIMES, AT OTHERS DISORGANIZED. WHEN DISORGANIZED PT MAKES ABNORMAL STATEMENTS AND PARTAKES IN STRANGE BEHAVIOR. PT IS EASILY REDIRECTED, AND IS MOSTLY COMPLIANT WITH UNIT RULES. PT IS IN [place] MOST OF THE TIME INTERACTING WITH STAFF AND PEERS. PT MOOD IS UNSTABLE, AFFECT APPEARS FULL RANGE, COMMUNICATION IS AT TIMES DISORGANIZED, AND APPETITE IS NORMAL. PT DENIES SI AT THIS TIME.
--- NOTE | 2016-11-15 04:15 | NUR ---
PT. SLEPT WELL UNTIL 0345.
[2016-11-15 07:38] VITALS: BP 156/83
--- NOTE | 2016-11-15 08:47 | IP INCIDENTAL NOTE PSYCH ---
Incidental Note Notation: Spoke with Dr. Nickerson (#[phone]) for collateral on the patient. Dr. Nickerson verified that the patient tapered himself off of Zyprexa in February 2016. It was unclear when the patient stopped prescribed [place]. Reviewed with Dr. Nickerson that discharge recommendation is for patient to complete IOP level of care post-dsicharge. Dr. Nickerson did not agree or disagree with IOP recommendation and verified he would take patient on as a an outpatient once discharged from [facility].
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
[2016-11-15 13:16] VITALS: BP 146/79
--- NOTE | 2016-11-15 14:10 | NUR ---
PT WAS AGITATED IN THE MORNING REQUIRING PRN MEDS AND SECURITY INTERVENTIONS. HE WAS CALMER IN THE AFTERNOON. HE IS TAKING HIS MEDS BUT UNABLE TO APPROPRIATELY PARTICIPATE IN GROUPS. HE DENIED ANY SUICIDAL THOUGHTS
[2016-11-15 15:55] VITALS: BP 158/93
[2016-11-15 19:56] VITALS: BP 125/75; BP 170/96
--- NOTE | 2016-11-15 23:19 | NUR ---
EVENING NOTE- PT PRESENT ON THE UNIT, 1:1 MAINTAINED FOR SAFETY, MOOD STABLE WITH FULL RANGE AFFECT, RESPONDING WELL TO REDIRECTION WHEN IT IS IMPLEMENTED, NO ISSUES OR COMPLAINTS REPORTED OR OBSERVED, + APPETITE, MED COMPLIANT.
--- NOTE | 2016-11-16 04:26 | NUR ---
1:1 MAINTAINED THROUGHOUT THE NIGHT FOR SAFETY, OVERALL + SLEEP WITH NO ISSUES OR COMPLAINTS, COOPERATIVE AND THUS FAR RESPONSIVE TO REDIRECTION WHEN IMPLEMENTED.
[2016-11-16 07:50] VITALS: BP 151/78
[2016-11-16 12:31] VITALS: BP 153/90
--- NOTE | 2016-11-16 13:17 | NUR ---
Patient presents with improved behavior, less pacing, less restlessness, more responsive to limit setting. Patient easily over stimulated, unable to tolerate groups. Patient maintained on 1:1, remains grandiose and delusional. Cooperative.
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
--- NOTE | 2016-11-16 14:41 | SOCIAL WORKER PROG TO GOALS ---
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, supportive family, engaged in out pt tx Physical Limitations (Interventions): none reported Patient Identified Trmt Goals: "I am not sure exactly why I am here." Discharge Plan: IOP Problem/Goals #1 Problem #1: psychosis Goal (Short Term): Be free of false perceptions and experience things as others do Be free of false beliefs Be free of thoughts that others are out to get you Spend 2-3 hours each week visiting/socializing with others Report feeling comfortable spending time with others Goal (Level Vial Inspector): Attend at least 3 groups daily while in the hospital Have familly meeting while in the hospital Explore and resolve issues related to traumatic events in lifetime Share details of the trauma with therapist, as able to do so Reframe negative perceptions, when possible, and focus on finding meaning and drawing strength from the event Learn about typical alf/residual effects of traumatic life experiences Progress: Patient has started to attend more groups on the unit but still appears to be displaying psychotic and paranoid symptoms. He appears over stimulated at times and continues to have poor sleep.
[2016-11-16 15:37] VITALS: BP 154/81
--- NOTE | 2016-11-16 16:03 | CP SOUTH PROGRESS NOTE PSYCH ---
Psych (Inpt) Progress Note Progress Note Include the following elements, when applicable: Involvement in the active treatment of the patient with behavioral observations of the patient and the patient's response to the treatment. Review of the ongoing treatment process in the context of the treatment plan. Indication of how multi-disciplinary staff members are carrying out the treatment plan. Plans for future interventions and recommendations for revision of the treatment plan. Liaison with other physicians/providers. Progress Note: [I discussed this patient's progress to date, current mental status, treatment process in the context of the treatment plan, and discharge planning with staff/ team in the daily morning inpatient team meeting. I also met with the patient myself in individual session.] SUBJECTIVE: "I'm in my bliss listening to music." OBJECTIVE: Current Medications Sig/Rosita Start time Last Medication Dose Route Stop Time Status Admin Diphenhydramine HCl 50 MG AT BEDTIME NEED.. 11/13 1745 AC 11/15 PO 2144 [place] Carbonate 600 MG 11/15 0800 AC 11/16 PO 0758 [place] Carbonate 600 MG AT BEDTIME 11/11 2200 AC 11/15 PO 2143 Lorazepam 0.5 MG 0800,11/17 0800 AC PO 11/17 2000 Lorazepam 0.5 MG 0800,1200,1600,0 11/16 0800 AC 11/16 PO 11/16 220 1610 Lorazepam 1 MG 0800,1400,11/15 0800 DC 11/15 PO 11/15 220 2144 Metoprolol Tartrate 12.5 MG BID 11/13 1234 AC 11/16 PO 0758 Olanzapine 15 MG 11/17 0800 UNVr PO Olanzapine 15 MG 11/15 2200 AC 11/15 PO 2143 Olanzapine 10 MG 11/13 0800 DC 11/16 PO 0758 Olanzapine 5 MG Q4 HRS NEEDED PRN 11/10 1715 AC 11/15 PO 1115 Vital Signs Date Time Temp Pulse Resp B/P Pulse O2 O2 Flow FiO2 Ox Delivery Rate 11/16 1537 98 154/81 11/16 1231 99 153/90 11/16 0758 96 151/78 11/16 0750 96.9 96 151/78 11/15 2143 98 170/96 11/15 1956 98.0 98 170/96 ASSESSMENT: Chart, progress notes, labs, VS, medication list reviewed. Reviewed patient's progress with nursing, who reported patient has shown improved behavioral and physical control. There was no evidence of overt grandiosity or hypersexual behaviors/statements today. Patient required less redirection in milieu than on previous encoutners. Patient did not require prn Zyprexa 5mg yet today for agitation/psychosis. Met with the patient at 3:50PM. He presented in good physical and behavioral control, accompanied by 1:1 sitter. Less hyperactivity/hypermobility on unit. Much less intrusive than in previous encounters. Speech was normal in rate, tone and volume. Eye contact was appropriate. He made appropriate jokes. Affect was full-range. Mood was euthymic. He had no complaints. He denied acute symptoms of anxiety and depression. He denied feeling hopeless, helpless, worthless and guilty. He denied passive and active suicidal ideation, plans and intent. He denied homicidal ideation. There was no evidence of paranoia or halima delusions. He denied AH and VH. Cognition was grossly intact. Thought process was linear. Thought content was mostly appropriate. Patient reported tolerating all medications well, and denied untoward medication effects. He denied further GI distress from [place], which he had initially reported on 11/14/16. Patient agreeable to continue taking medications. No evidence of movement disorder. AIMS=0. PLAN: 1. Increase Zyprexa from 10mg QAM to 15mg QAM for mood stabilization. Continue Zyprexa 15mg QHS. 2. Continue [place] 600mg BID. Li level scheduled tomorrow at 0600. Target range 0.8-1.0. Please increase over the weekend if subtherapeutic/below target range. 3. Continue 1:1 male sitter ATC for safety to self and others. 4. Continue monitoring the patient on unit for mood, safety and psychosis. 5. Dispo planning per primary team. 6. Continue Ativan taper as ordered.
[2016-11-16 19:55] VITALS: BP 155/82
--- NOTE | 2016-11-16 21:36 | NUR ---
Pt is out in the community still on 1:1 for behavioral redirection. Pt is complioant and cooperative with the staff. Pt vital signs are stable appetite is good. No behavioral issues noted during the day. Will continue to monitor the pt overnight.
--- NOTE | 2016-11-17 04:41 | NUR ---
PT. AWAKE ALL NIGHT.
[2016-11-17 08:10] VITALS: BP 155/80
--- NOTE | 2016-11-17 10:53 | CP SOUTH PROGRESS NOTE PSYCH ---
Psych (Inpt) Progress Note Progress Note Include the following elements, when applicable: Involvement in the active treatment of the patient with behavioral observations of the patient and the patient's response to the treatment. Review of the ongoing treatment process in the context of the treatment plan. Indication of how multi-disciplinary staff members are carrying out the treatment plan. Plans for future interventions and recommendations for revision of the treatment plan. Liaison with other physicians/providers. Progress Note: Per nursing staff, remains intrusive and hypomanic at times, wants to leave. Stated that his mood is stabilized and he is ready to be discharged and take it easy. Agreed to have lithium level increased. Some oddness, for example, asking if my name is Dee after I introduced myself, stated that tying fishing flys would help him when he gets home; but overall linear. Stated that he is only here for his father and that he is not nuts but is happy that father is coming to visit him today, MSE: middle aged man, overweight, fair grooming and fair hygiene. No psychomotor agitation/slowing noted. No movement d/o noted. Adequate eye contact. Affect full, mood neutral. Thought process somewhat tangential, starts talking about unrelated thoughts at times; but overall responsive and goal directed. Denies thoughts to harm self/others. Not internally preoccupied, denies AH/VH. Thought content w/o evidence of any gross delusions but disorganization presentX. Insight impaired, judgment sufficient. A: 31 y/o man w/ dx schizoaffective d/o, admitted w/ hypomanic/manic episodes; stabilizing on lithium and olanzapine. P: Increase lithium to 600mg in the morning and 900mg at night time to target mood lability. Patient agreed. Li level 0.4. Consider adding small day time dose of olanzapine tmr if he continues to be intrusive. Li level for 11/19/16. Also, BP has been running high, 155/80~ approx; will increase metoprolol to 25mg twice daily to be followed up w/ transport rn and primary team; patient young and needs cardio follow up on d/c (agree w/ Dr. Viera who eval patient earlier in the week).
--- NOTE | 2016-11-17 12:04 | NUR ---
PT IS MONITORED ON ONE TO ONE STATUS FOR SAFETY. HE HAS BEEN FAIRLY CALM AND ABLE TO BE REDIRECTED.HE IS RESTLESS AT TIMES AND BORED. HE DENIED ANY SUICIDAL THOUGHTS. HE IS COMPLIANT WITH HIS MED REGIME. LITHIUM LEVEL REPORTED TO MD AND ADJUSTMENTS WERE MADE
[2016-11-17 12:21] VITALS: BP 153/98
[2016-11-17 15:51] VITALS: BP 161/99
[2016-11-17 20:22] VITALS: BP 156/89
--- NOTE | 2016-11-17 22:23 | NUR ---
PT IS PACING RAPIDLY ABOUT THE UNIT, MOSTLY COMPLIANT WITH UNIT RULES, BUT HAS TROUBLE WITH THIS AT TIMES DUE TO DISORGANIZED BEHAVIOR. PT IS EASILY RE-DIRECTED WHEN DISORGANIZED. PT MOOD IS NOT STABLE, AFFECT IS FULL RANGE, COMMUNICATION IS DISORGANIZED AT TIMES, AND APPETITE IS NORMAL. PT DENIES SI AT THIS TIME.
--- NOTE | 2016-11-18 05:24 | NUR ---
PATIENT SLEPT MUCH BETTER LAST NIGHT; HE WAS AWAKE AT 0300, AND WAS CONFUSED, WALKING IN THE WRONG DIRECTION TRYING TO GET TO THE BATHROOM; HE WAS MAKING SUDDEN MOVEMENTS IN DIFFERENT DIRECTIONS; PRN ZYPREXA AND BENADRYL GIVEN WITH GOOD EFFECT; PATIENT RETURNED TO SLEEP; 1:1 SITTER MONITORING AT ALL TIMES.
[2016-11-18 07:44] VITALS: BP 147/91
--- NOTE | 2016-11-18 09:25 | CP SOUTH PROGRESS NOTE PSYCH ---
See Addendum Psych (Inpt) Progress Note Progress Note Include the following elements, when applicable: Involvement in the active treatment of the patient with behavioral observations of the patient and the patient's response to the treatment. Review of the ongoing treatment process in the context of the treatment plan. Indication of how multi-disciplinary staff members are carrying out the treatment plan. Plans for future interventions and recommendations for revision of the treatment plan. Liaison with other physicians/providers. Progress Note: Disorganized yesterday afternoon, intrusive at times. This morning remains oddly related, too familiar; disorganized. Stated that everything is copesetic and is ready to go home. Stated that he has relatives everywhere including here; that he is trying to move forward. Asked to be called veda chen, thats my real name and other odd statements. Agreed to try an extra dose of olanzapine during the day time; no excess sedation w/ next dose of lithium said he would prefer 1.5mg of olanzapine but agreed to 2.5mg. MSE: young aged man, overweight, fair grooming and fair hygiene. No psychomotor agitation/slowing noted. No movement d/o noted. Adequate eye contact. Affect full, mood good. Thought process disorganized, odd words/statements every once in a while during conversation, tangential. No evidence of thoughts to harm self /others. Distracted easily, but not responding to internal stimuli. Thought content odd statements, delusions, for ex that he has many relatives here in the hospital and on the unit however not preoccupied with this. Still somewhat focused on women. Insight impaired, judgment poor, as evidence by needing frequent redirection and boundaries. A: 31 y/o man w/ dx schizoaffective d/o, admitted w/ hypomanic/manic episodes; stabilizing on lithium and olanzapine slowly. P: Increased lithium to 600mg in the morning and 900mg at night time to target mood lability. Patient agreed. Li level 0.4. Today added olanzapine 2.5mg at 2pm. Li level for 11/19/16. Increased metoprolol to 25mg twice daily yesterday; BP to be followed up w/ demographic analyst and primary team; patient young and needs cardio follow up on d/c ( agree w/ Dr. Issa who eval patient earlier in the week).
--- NOTE | 2016-11-18 12:17 | NUR ---
Pt is present in the community, very hyperactive, pacing hallways often and on, some level of disorganized thought and illogical questioning but redirectable. Patient is expressing desire to be discharged home, and showing some level of frustration/ out of favor with his 1:1 sitter. Denies any AH/VH, thought of self-harm and to someone else.Vital sign is a bit elevated but within acceptable range.
[2016-11-18 12:20] VITALS: BP 153/91
[2016-11-18 16:20] VITALS: BP 153/77
[2016-11-18 20:10] VITALS: BP 154/83
--- NOTE | 2016-11-18 21:19 | NUR ---
PT IS VISIBLE ON UNIT, INTERACTING WITH PEERS AND STAFF. REMAINS ON 1:1 FOR SAFETY. HAD MULTIPLE VISITORS THROUGHOUT THE EVENING. COOPERATIVE AND COMPLIANT WITH STAFF. NO COMPLAINTS OR SI REPORTED. PT HAS A STABLE MOOD AND FULL RANGE AFFECT.
--- NOTE | 2016-11-19 04:18 | NUR ---
SLEPT BERY WELL THIS SHIFT.
[2016-11-19 07:45] VITALS: BP 154/89
--- NOTE | 2016-11-19 12:04 | CP SOUTH PROGRESS NOTE PSYCH ---
Psych (Inpt) Progress Note Progress Note Include the following elements, when applicable: Involvement in the active treatment of the patient with behavioral observations of the patient and the patient's response to the treatment. Review of the ongoing treatment process in the context of the treatment plan. Indication of how multi-disciplinary staff members are carrying out the treatment plan. Plans for future interventions and recommendations for revision of the treatment plan. Liaison with other physicians/providers. Progress Note: [I discussed this patient's progress to date, current mental status, treatment process in the context of the treatment plan, and discharge planning with staff/ team in the daily morning inpatient team meeting. I also met with the patient myself in individual session.] SUBJECTIVE: "I can't complain, things are good." OBJECTIVE: Current Medications Sig/Rosita Start time Last Medication Dose Route Stop Time Status Admin Diphenhydramine HCl 50 MG AT BEDTIME NEED.. 11/13 1745 AC 11/18 PO 2200 [place] Carbonate 600 MG 0800 11/18 0800 AC 11/19 PO 0843 [place] Carbonate 900 MG AT BEDTIME 11/17 2200 AC 11/18 PO 2200 Lorazepam 0.5 MG Q8P PRN 11/19 1100 AC PO 11/25 1159 Lorazepam 1 MG Q8P PRN 11/18 1200 DC 11/18 PO 2200 Metoprolol Tartrate 25 MG BID 11/17 2200 AC 11/19 PO 0843 Olanzapine 2.5 MG 1400 11/18 1400 AC 11/18 PO 1331 Olanzapine 15 MG 0811/17 0800 AC 11/19 PO 0843 Olanzapine 15 MG 11/15 2200 AC 11/18 PO 2200 Olanzapine 5 MG Q4 HRS NEEDED PRN 11/10 1715 AC 11/18 PO 1119 Laboratory Tests 11/19/16 0547: [place] 0.5 L Vital Signs Date Time Temp Pulse Resp B/P Pulse O2 O2 Flow FiO2 Ox Delivery Rate 11/19 0843 100 154/89 11/19 0745 97.5 100 154/89 11/180 97.2 116 18 154/83 11/18 2009 97.2 116 154/83 11/18 1620 100 153/77 11/18 1220 100 153/91 ASSESSMENT: Chart, progress notes, labs, VS, medication list reviewed. Discussed patient's treatment progress with nursing staff and in morning treatment team meeting. Over the weekend, [place] was increased from 600mg BID to 600mg QAM and 900mg QPM, and Zyprexa was increased by 2.5mg (32.5mg/daily) for mood stabilization. Metoprolol 12.5mg BID was increased to 25mg BID for tachycardia and HTN. Per nursing staff, this morning, patient appears to show improved behavioral and physical control. Reported patient has slept well over last 2 nights. Discussed discontinuing patient's 1:1 sitter, and will trial patient of 1:1. Met with patient today at 12:00PM. Patient demonstrated good behavioral and physical control. He was not intrusive with this clinical writer, as in previous encounters. He shared that he had positive visits from family and friends over the weekend. He denied physical complaints. When asked how his mood was he reported "very jovial." When asked if he was feeling anxious or depressed, he reported "not really, I just don't like being here." He reported his energy was "not bad." Less pacing and hyperactivity noted in milieu. Responding better to staff redirection. Reported appetite and sleep were good. He denied passive and active suicidal ideation, plans or intent. He denied homicidal ideation. Patient denied auditory and visual hallucinations. There was no evidence of paranoia or halima delusions. Thought process was mostly organized and linear. Cognition was grossly intact. Patient still appeared easily distracted, however no evidence of internal stimulation noted. Patient reported tolerating all medications well, and denied untoward medication effects. No evidence of s/sx of movement disorder. Will continue medications at present doses, however will reduce Ativan from 1mg Qh8 prn to 0.5mg Q8H prn. PLAN: 1. Discontinue 1:1 sitter, as patient is responding better to staff redirection, and shows improved behavioral and physical control. 2. Continue current medications. 3. Reduce Ativan 1mg Q8H prn to 0.5mg QH8 prn. 4. [place] level scheduled for tomorrow morning, as today's level was not a trough level. 5. Cardiology consult placed for persistent tachycardia and HTN despite increased Metoprolol. 6. Dispo planning per primary team.
[2016-11-19 12:07] VITALS: BP 153/77
--- NOTE | 2016-11-19 13:30 | SOCIAL WORKER PROG NOTE PSYCH ---
Social Work Progress Note Progress Note Patient was eager to meet with me this AM. Patient continues to be preoccupied with the thought of discharge and continues to express his interest in returning home. Patient continues to have poor insight and judgement into his mental health at this time. Patient believes he is fine and that he needs to return home. Patient reported having family visit over the weekend and reports that his visits went well. Patient had one outburst this AM during planning meeting where he screamed abruptly when other patients in the group were making complaints about the weekend. Patient was then asked to leave the group which he did without complaint. Patient is easily redirected but does contintue to have difficulties controlling his outburts when agitated or excited.
--- NOTE | 2016-11-19 13:43 | NUR ---
out in community going to parts of groups. has been cooperative with medications and as need redirection. Mood is stable, full range of affect. denied thoughts of self harm when asked.
[2016-11-19 15:25] VITALS: BP 151/87
[2016-11-19 19:44] VITALS: BP 157/98
[2016-11-19 21:36] VITALS: BP 147/86
--- NOTE | 2016-11-19 23:35 | NUR ---
Pt is out in the community mood is stable affect is in full range, 1:1 is being dc. Pt is compliant and cooperative with the staff, vital signs are stable c/o no pain, appetite is good. Will continue to monitor the pt overnight.
--- NOTE | 2016-11-20 06:48 | NUR ---
PATIENT WAS AWAKE AND HYPOMANIC UNTIL AFTER 0230; AT 0200 HE ESCALATING, GETTING LOUD AND PACING UNIT; PRN ATIVAN, BENADRYL AND ZYPREXA GIVEN PO; SECURITY DID WALK THROUGH OF UNIT; PATIENT EVENTUALLY CALMED AND WAS ABLE TO SLEEP UNTIL 0600.
[2016-11-20 07:37] VITALS: BP 156/77
--- NOTE | 2016-11-20 08:17 | CP SOUTH PROGRESS NOTE PSYCH ---
Psych (Inpt) Progress Note Progress Note Include the following elements, when applicable: Involvement in the active treatment of the patient with behavioral observations of the patient and the patient's response to the treatment. Review of the ongoing treatment process in the context of the treatment plan. Indication of how multi-disciplinary staff members are carrying out the treatment plan. Plans for future interventions and recommendations for revision of the treatment plan. Liaison with other physicians/providers. Progress Note: [I discussed this patient's progress to date, current mental status, treatment process in the context of the treatment plan, and discharge planning with staff/ team in the daily morning inpatient team meeting. I also met with the patient myself in individual session.] SUBJECTIVE: "I'mreally good, I think I'm getting better." OBJECTIVE: Laboratory Tests 11/19 11/20 0547 0600 Toxicology [place] (0.6 - 1.2 mmol/L) 0.5 L 0.6 Current Medications Sig/Rosita Start time Last Medication Dose Route Stop Time Status Admin Benzocaine/Menthol 1 ROQUE Q2P PRN 11/20 0245 AC PO Diphenhydramine HCl 50 MG AT BEDTIME NEED.. 11/13 1745 AC 11/20 PO 0154 [place] Carbonate 600 MG 11/21 0800 AC PO [place] Carbonate 150 MG 11/21 0800 AC PO [place] Carbonate 150 MG ONE TIME ONE 11/20 1230 DC 11/20 PO 11/20 1231 1424 [place] Carbonate 600 MG 11/18 0800 DC 11/20 PO 0744 [place] Carbonate 900 MG AT BEDTIME 11/17 2200 AC 11/19 PO 2328 Lorazepam 2 MG ONE TIME ONE 11/20 1315 DC 11/20 PO 11/20 1316 1330 Lorazepam 0.5 MG Q8P PRN 11/19 1100 AC 11/20 PO 02/05 1159 0155 Metoprolol Tartrate 25 MG BID 11/17 2200 AC 11/20 PO 0744 Olanzapine 2.5 MG 1400 11/18 1400 AC 11/20 PO 1425 Olanzapine 15 MG 0800 11/17 0800 AC 11/20 PO 0744 Olanzapine 15 MG 11/15 2200 AC 11/19 PO 2330 Olanzapine 5 MG Q4 HRS NEEDED PRN 11/10 1715 AC 11/20 PO 1253 Vital Signs Date Time Temp Pulse Resp B/P Pulse O2 O2 Flow FiO2 Ox Delivery Rate 11/20 1603 104 155/82 11/20 1213 100 156/85 11/20 0744 104 156/77 11/20 0737 96.8 104 156/77 11/19 2137 108 147/86 11/19 2135 108 147/86 11/19 1943 96.9 108 157/98 ASSESSMENT: Met with patient today at 17:20. Patient presented calm, sitting on bed in room. Speech was normal in rate, tone and volume. He reported having a difficult time earlier today due to another patient who was very loud and pacing on the unit. Patient became loud himself and began pacing. Received Ativan 2mg po at 13:30 for agitation related to this incident. He reported Ativan dose helped calm his nerves, and was able to resume activity in the milieu further without issue. Patient has maintained overall good behavioral and physical control off 1:1. He reported sleep and appetite were good. He offered no complaints. He denied feeling hopeless, helpless, worthless or guilty. Reported his mood as "really good, I think I'm getting better." He denied active and passive suicidal ideation, plans and intent. He denied homicidal ideation. Denied racing thoughts. He denied auditory and visual hallucinations. There was no evidence of paranoia or halima delusions. Cognition was grossly intact. Thought process was linear. Thought content ws mostly appropriate. Patient continues to report tolerating medications well, and denied untoward medication effects. No evidence of movement disorder noted. PLAN: 1. Increase [place] from 600mg QAM and 900mg QPM, to 750mg QAM and 900mg QPM for further mood stabilization. Li level scheduled on 10/22/16 at 0600 (1 day prior to reaching trough) due to anticipated discharge. 2. Continue all other medications. 3. Cardiology consult for persistent tachycardia and HTN. 4. Continue monitoring the patient on unit for safety and mood.
[2016-11-20 12:13] VITALS: BP 156/5; BP 156/85
--- NOTE | 2016-11-20 14:06 | NUR ---
Pt was visible in the milieu today. He went to all of the groups today except for accupunture. In the milieu pt has some interactions with his peers, and has been compliant with staff direction. Pt denies thoughts of harming himself when asked.
--- NOTE | 2016-11-20 15:16 | SOCIAL WORKER PROG NOTE PSYCH ---
Social Work Progress Note Progress Note Patient appears to be making improvements. Patient was calmer today when we met, appears less focused on discharge and less agitated by hospitalization. Patient appears to be managing his emotions and behaviors more appropriately and is no longer in the need of 1 to 1. Patient has been attending groups on the unit and seen appropriately socializing with peers. Patient less religiously preoccupied and less focused on women. Today we reviewed the aftercare plan of [facility] which patient has agreed to attend. He still expresses concern that it will interfere with work but then stated "we will make it work somehow."
[2016-11-20 16:03] VITALS: BP 155/82
[2016-11-20 19:43] VITALS: BP 149/77
--- NOTE | 2016-11-20 22:07 | NUR ---
PT IS STABLE WITH BRIGHT, FULL RANGE OF AFFECT. PT IS VISIBLE WITHIN THE COMMUNITY AND INTERACTING WITH PEERS. VERY APPROPRIATE TO UNIT AND DID NOT REQUIRE ANY REDIRECTION. ATTENDED GROUP AND VS ARE STABLE. DENIES ANY SI/HI TO THIS MHW.
--- NOTE | 2016-11-21 04:57 | NUR ---
PT. SLEPT UNTIL 0230 THEN PACING AROUND UNIT REFUSING ANY MEDS. COOPERATIVE WITH CARE REDIRECTABLE.
[2016-11-21 07:54] VITALS: BP 146/78
--- NOTE | 2016-11-21 11:22 | NUR ---
PT IS PRESENT ON THE UNIT, COOPERATIVE WITH STAFF REDIRECTION, MOOD STABLE WITH FULL RANGE AFFECT, INTRUSIVE AT TIMES HOWEVER OVERALL CALM AND COMPLIANT, ATTENDING SOME GROUPS, WEB GRAPHIC DESIGNER PAGED ONCE AGAIN TO REMIND OF CONSULT, NO RETURN CALL THEREFORE EMERGENCY SERVICES DISPATCHER CALLED THE OFFICE @ 1127AM.
[2016-11-21 13:22] VITALS: BP 144/68
--- NOTE | 2016-11-21 15:23 | SOCIAL WORKER PROG NOTE PSYCH ---
Social Work Progress Note Progress Note Patient presented calmer today with less agitation and/or outbursts. Patient attending groups on the unit and participating appropriately. Patient inquired about discharge today and continues to express desire about going home but did not perseverate on this topic. I spoke with patients father this AM on the phone who reported that he does feel patient is getting better but still reports some bizarre comments/ behaviors that he has noticed when visiting patient. Patient had difficulty sleeping throughout the night last night and called his father in the middle of the night at 2AM. When I brought this up with patient today he had no recollection of this and could not recall any part of the conversation. Patients father felt it was out of the norm for patient to do that and continues to express concern. He is aware that we are recommending IOP for patient and is in support of this plan and will agree to monitor patients medications when he returns home.
[2016-11-21 16:27] VITALS: BP 154/95
--- NOTE | 2016-11-21 17:08 | CP SOUTH PROGRESS NOTE PSYCH ---
Psych (Inpt) Progress Note Progress Note Include the following elements, when applicable: Involvement in the active treatment of the patient with behavioral observations of the patient and the patient's response to the treatment. Review of the ongoing treatment process in the context of the treatment plan. Indication of how multi-disciplinary staff members are carrying out the treatment plan. Plans for future interventions and recommendations for revision of the treatment plan. Liaison with other physicians/providers. Progress Note: [I discussed this patient's progress to date, current mental status, treatment process in the context of the treatment plan, and discharge planning with staff/ team in the daily morning inpatient team meeting. I also met with the patient myself in individual session.] SUBJECTIVE: "I'm peachy." OBJECTIVE: Current Medications Sig/Rosita Start time Last Medication Dose Route Stop Time Status Admin Benzocaine/Menthol 1 ROQUE Q2P PRN 11/20 0245 AC PO Diphenhydramine HCl 50 MG AT BEDTIME NEED.. 11/13 1745 AC 11/20 PO 0154 [place] Carbonate 600 MG 11/21 08 AC 11/21 PO 0756 [place] Carbonate 150 MG 11/21 08 AC 11/21 PO 0756 [place] Carbonate 900 MG AT BEDTIME 11/17 2200 AC 11/20 PO 2149 Lorazepam 0.5 MG Q8P PRN 11/19 1100 AC 11/20 PO 11/25 1159 0155 Melatonin 10 MG 11/21 2200 AC PO Metoprolol Tartrate 25 MG BID 11/17 220 AC 11/21 PO 0738 Olanzapine 2.5 MG 1400 11/18 1400 AC 11/21 PO 1313 Olanzapine 15 MG 11/17 0800 AC 11/21 PO 0738 Olanzapine 15 MG 11/15 2200 AC 11/20 PO 2150 Olanzapine 5 MG Q4 HRS NEEDED PRN 11/10 1715 AC 11/20 PO 1253 Vital Signs Date Time Temp Pulse Resp B/P Pulse O2 O2 Flow FiO2 Ox Delivery Rate 11/21 1627 104 154/95 11/21 1322 100 144/68 11/21 0754 97.3 100 146/78 11/21 0738 100 146/78 11/20 2149 96.5 98 18 149/77 11/20 1943 96.5 98 149/77 ASSESSMENT: Reviewed patient's progress with nursing staff. Patient has been showing more consistent behavioral and physical control, with periods of irritability. It was reported by nursing that the patient did not sleep well overnight, and woke up at 2AM and made phone call to father. Patient was redirectable, but continues to struggle with sleep. On encoutner today, patient is pleasant and polite. A&Ox3. Speech was normal in rate, tone and volume. Demonstrated good behavioral and physical control. Affect was full-range. Mood was mostly euthymic, calm. 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 Patient appeared focused on discharge as he remains eager to resume work with his father. When informed that primary team was concerned about his lack of sleep during the night, he appeared to minimize sleep issues, first reporting "I always get up early, it's no big deal" and "it was snowing last night, I like watching the snow." Psychoeducation was provided to patient on importance of sleep hygeine. Patient verbalized understanding of education and was agreeable to trial of Melatonin for insomnia. Reviewed the risk/benefit/SE profiles of Melatonin, patient verbalized understanding and was agreeable to trial. Patient denied feeling hopeless, helpless, worthless, and guilty. There were no overt signs of manic behaviors observed, or symptoms of psychosis. He denied PI and delusions. Thought process was linear and organized. Thought content was mostly appropriate. He denied active and passive suicidal ideation, plans and intent. He denied homicidal ideation. Patient was agreeable to continuing prescribed medications, and add melatonin at HS for insomnia. PLAN: 1. Start Melatonin 10mg at HS for insomnia. 2. Continue medications. 3. Cardiology consult requested. 4. Li level scheduled for tomorrow AM. 5. Dispo planning per primary team. 6. Tentative discharge tomorrow.
[2016-11-21 19:38] VITALS: BP 146/85
--- NOTE | 2016-11-21 21:43 | NUR ---
PT IS RELATIVELY CALM, COOPERATIVE WITH STAFF AND PEERS, AND COMPLIANT WITH UNIT RULES. PT HAS A TENDENCY TO ERR TOWARDS DISORGANIZED BEHAVIOR AT TIMES, BUT IS RELATIVELY EASY TO REDIRECT DURING THESE OCCURENCES. PT IS IN [place], INTERACTING WELL WITH OTHERS. PT MOOD IS STABLE, AFFECT IS FULL RANGE, COMMUNICATION IS DISORGANIZED AT TIMES, BUT CAN BE REDIRECTED, AND APPETITE IS NORMAL. PT DENIES SI AT THIS TIME.
--- NOTE | 2016-11-22 05:40 | NUR ---
SLEPT WELL AFTERE BEING GIVEN A FEW PRN'S. BENADRYL GIVEN WITH MINIMAL EFFECT ,BECAME A LITTLE HYPER AND NOT REDIRECTABLE AND WAS GIVEN ZYPREXA AND ATIVAN WITH GOOD EFFECT FOR AGITATION/RESTLESSNESS.
[2016-11-22 07:38] VITALS: BP 147/77
--- NOTE | 2016-11-22 11:12 | SOCIAL WORKER PROG NOTE PSYCH ---
Social Work Progress Note Progress Note Patient presents as irritable and argumentative today. I attempted to discuss with patient the incident that occurred last evening with the kitchen tv and patient was unable to respond appropriately. Patient responded that the tv was "a piece of crap and my grandma has a better tv then that." Patient unable to have insight into the inappropriate of his behavior and then proceeded to state that he asked engineering if they could put the tv in his room since they were throwing it out. Patients judgement and insight continues to be poor and patient continues to be intrusive with staff, frequently standing around nursing station making inappropriate requests. This short story writer noticed that patient wrote and sindi on his wall in his bedroom which was very religiously preoccupied talking about the devil and being a storm. When asked about this patient reported that a guardian román told him this and that he was told he could decorate room so he did. Patient appears to need continued hospitalization at this time and review was completed with insurance. Awaiting call back to see if authorized further hospitalization.
--- NOTE | 2016-11-22 11:14 | SOCIAL WORKER PROG TO GOALS ---
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, supportive family, engaged in out pt tx Physical Limitations (Interventions): none reported Patient Identified Trmt Goals: "I am not sure exactly why I am here." Discharge Plan: IOP Problem/Goals #1 Problem #1: psychosis Goal (Short Term): Be free of false perceptions and experience things as others do Be free of false beliefs Be free of thoughts that others are out to get you Spend 2-3 hours each week visiting/socializing with others Report feeling comfortable spending time with others Goal (Communications Programmer): Attend at least 3 groups daily while in the hospital Have familly meeting while in the hospital Explore and resolve issues related to traumatic events in lifetime Share details of the trauma with therapist, as able to do so Reframe negative perceptions, when possible, and focus on finding meaning and drawing strength from the event Learn about typical senior living/residual effects of traumatic life experiences Progress: Patient continues to present with manic symptoms. Continues to be intrustive, inappropriate, and lacks insight and judgement into his behaviors.
[2016-11-22 12:19] VITALS: BP 145/72
--- NOTE | 2016-11-22 12:49 | Cons- Cardiology ---
General Information and HPI Consulting Request Date of Consult: 11/22/16 Requested By: RONNIE DUARTE MD Reason for Consult: Persistent sinus tachycardia and history of possible valvular disease as a child Source of Information: patient, old records Exam Limitations: no limitations History of Present Illness: The patient is a 31-year-old man who is in the inpatient psychiatric unit for schizoaffective disorder. He has been here about 10 days. He has been persistently tachycardic. He was started on low-dose beta edin, now on metoprolol 25 mg twice daily. The patient tells me he was evaluated many times at [facility] when he was a child for heart murmur but was told that everything had "closed up". Subsequently has not had any further evaluation as an adult. The patient does not describe chest pain, shortness of breath, dizziness or syncope. He notes that his heart tends to pound when he is active or exercises but this does not bother him too much. Allergies/Medications Allergies: Coded Allergies: NO KNOWN ALLERGIES (10/22/11) Current Medications: Current Medications Sig/Rosita Start time Last Medication Dose Route Stop Time Status Admin Benzocaine/Menthol 1 ROQUE Q2P PRN 11/20 0245 AC PO Diphenhydramine HCl 50 MG AT BEDTIME NEED.. 11/13 1745 AC 11/21 PO 2353 Darwin Carbonate 600 MG 11/21 08 AC 11/22 PO 0801 Darwin Carbonate 150 MG 11/21 0800 AC 11/22 PO 0801 Darwin Carbonate 900 MG AT BEDTIME 11/17 2200 AC 11/21 PO 2128 Lorazepam 0.5 MG Q8P PRN 11/19 1100 AC 11/22 PO 11/25 1159 0124 Melatonin 10 MG 11/21 2200 AC 11/21 PO 2129 Metoprolol Tartrate 25 MG BID 11/17 2200 AC 11/22 PO 0801 Olanzapine 2.5 MG 1400 11/18 1400 AC 11/21 PO 1313 Olanzapine 15 MG 11/17 08 AC 11/22 PO 0801 Olanzapine 15 MG 11/15 2200 AC 11/21 PO 2130 Olanzapine 5 MG Q4 HRS NEEDED PRN 11/10 1715 AC 11/22 PO 0124 Review of Systems Review of Systems: His only other complaints are psychiatric related Past History Travel History Traveled to [place] past 21 day No Medical History Blood Transfusion Hx: No Neurological: NONE EENT: NONE Cardiovascular: HEART MURMUR Respiratory: NONE Gastrointestinal: NONE Hepatic: NONE Renal: NONE Musculoskeletal: PYSCHOSIS Psychiatric: psychosis Endocrine: NONE Blood Disorders: NONE Cancer(s): NONE PAINTING MANAGER/Reproductive: NONE Surgical History Surgical History: 1 Family History Relations & Conditions If Any: Relation not specified for: Stomach cancer Psychosocial History Where Do You Live? Home Smoking Status: Never Smoked ETOH Use: denies use Illicit Drug Use: denies illicit drug use Living Will? unknown Functional Ability ADLs Independent: dressing, eating, toileting, bathing. 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 He has somewhat of a flat affect. HEENT exam is normal Neck veins are not distended Carotids are normal Chest is clear Heart reveals a grade 2-3/6 somewhat harsh systolic ejection murmur heard best at the left base and left sternal border. There are no diastolic murmurs. The abdomen is benign Extremities reveal good pulses and no edema Labs/Claude Results: Laboratory Tests 11/22 0620 Toxicology Darwin (0.6 - 1.2 mmol/L) 0.6 Diagnostic Data EKG Results He has had several EKGs which all show mild sinus tachycardia and are otherwise normal CXR Results No chest x-ray was done on this admission Assessment/Plan Assessment/Plan This patient presents with the mild persistent sinus tachycardia. Some of this could be related to his psychiatric medications. However he also has a history of a heart murmur. He does have a heart murmur mainly in the left side of the base and left sternal border. By auscultation the murmur is most consistent with pulmonic stenosis but the patient is really not aware of the being told this in the past. Since he has not had any cardiac evaluation since he was a child we will get an echocardiogram while he is here. I will also repeat his electrocardiogram as his heart rate seems a little slower than it was previously. He may need slightly higher dose of beta edin depending on the results of these tests. I will follow-up after the testing. Copies To: GERALD BOSE,RONNIE Nelson Acknowledgment - Thank you for your consult request.
--- NOTE | 2016-11-22 13:54 | NUR ---
PT HAS BEEN COMPLIANT AND COOPERATIVE. MOOD IS STABLE WITH A FULL RANGE OF AFFECT. PT SPEECH HAS BEEN QUIETER OVERALL. PT BEHAVIOR CAN BE DISORGANIZED AT TIMES- ABLE TO BE REDIRECTED. PT DENIES SI AT THIS TIME, NO COMPLAINTS OFFERED. PT IS PRESENT IN THE COMMUNITY AND INTERACTING WITH PEERS AND STAFF. PT IS ATTENDING GROUPS. VITALS ARE STABLE, APPETITE IS GOOD.
--- NOTE | 2016-11-22 14:44 | CP SOUTH PROGRESS NOTE PSYCH ---
Psych (Inpt) Progress Note Progress Note Include the following elements, when applicable: Involvement in the active treatment of the patient with behavioral observations of the patient and the patient's response to the treatment. Review of the ongoing treatment process in the context of the treatment plan. Indication of how multi-disciplinary staff members are carrying out the treatment plan. Plans for future interventions and recommendations for revision of the treatment plan. Liaison with other physicians/providers. Progress Note: [I discussed this patient's progress to date, current mental status, treatment process in the context of the treatment plan, and discharge planning with staff/ team in the daily morning inpatient team meeting. I also met with the patient myself in individual session.] SUBJECTIVE: "I feel like a new man." OBJECTIVE: Current Medications Sig/Rosita Start time Last Medication Dose Route Stop Time Status Admin Benzocaine/Menthol 1 ROQUE Q2P PRN 11/20 0245 AC PO Diphenhydramine HCl 50 MG AT BEDTIME NEED.. 11/13 1745 AC 11/21 PO 2353 Azure Carbonate 600 MG 11/21 08 AC 11/22 PO 0801 Azure Carbonate 150 MG 11/21 0800 AC 11/22 PO 0801 Azure Carbonate 900 MG AT BEDTIME 11/17 2200 AC 11/21 PO 2128 Lorazepam 0.5 MG Q8P PRN 11/19 1100 AC 11/22 PO 11/25 1159 0124 Melatonin 10 MG 11/21 2200 AC 11/21 PO 2129 Metoprolol Tartrate 25 MG BID 11/17 2200 AC 11/22 PO 0801 Olanzapine 2.5 MG 1400 11/18 1400 AC 11/22 PO 1332 Olanzapine 15 MG 11/17 0800 AC 11/22 PO 0801 Olanzapine 15 MG 11/15 2200 AC 11/21 PO 2130 Olanzapine 5 MG Q4 HRS NEEDED PRN 11/10 1715 AC 11/22 PO 0124 Vital Signs Date Time Temp Pulse Resp B/P Pulse O2 O2 Flow FiO2 Ox Delivery Rate 11/22 1219 99 145/72 11/22 0801 95.9 98 18 147/77 11/22 0738 95.9 98 147/77 11/21 2129 108 146/85 02 1938 97.0 108 146/85 11/21 1627 104 154/95 ASSESSMENT: Chart, progress notes, VS, labs, medication list, and cardiology consult reviewed and appreciated. Patient's progress reviewed with nursing staff. Per nursing reports, last evening the patient appeared hypomanic and removed unit television paneling, was intrusive, however redirectable and slept poorly. During present shift, per nursing, patient appears bored on unit, was noted drawing on his bedroom wall with a marker, and rearranging his bed in room. Patient was noted taking food off of another patient's meal tray.Thought process at times remains disorganized , remains mildly intrusive, however is redirectable by staff. Reviewed patient's behaviors during last night and today, patient with minimal insight and judgement into behaviors, and unable to recall above events. Drawing to bedroom wall was noted to have hyperreligious statements about the devil and being a storm. Patient would not comment on this. He presented Ox3. Hypermotoric on unit, but redirectable. Thought process remains distracted, and during encounter, observed watching the clock repeating "tick tock, tick tock." Patient redirectable to conversation with verbal prompting. Quite guarded on encounter with this auto service writer. No evidence of internal stimulation. Thought process mostly linear, however per nursing staff reports somewhat hyperreligious. ? delusions/ paranoia. Cognition grossly intact. He continues to deny acute symptoms of anxiety and depression. Rohan feeling hopeless, helpless, worthless and guilty. He denies passive and active suicidal ideation, plans and intent. He denies homicidal ideation. Denies racing thoughts , auditory and visual hallucinations. Sleep remains impaired per nursing reports , patient unable to speak to this. Feels his sleep is fine, "I feel like a new man." Reports appetite is good. Patient continues to report tolerating medications well, and denied untoward medication effects. No evidence of s/sx of movement disorder. Remains persistently tachycardic. Per Dr. Law, echocardiogram and repeat EKG ordered. Dr. Law to follow. PLAN: 1. Continue current medications, until echocardiogram and EKG results are in. 2. Continue monitoring the patient on unit for safety and mood. 3. Consider switch to alternative AP medication, if psychiatric symptoms do not further stabilize. 4. Dispo planning per primary team.
[2016-11-22 15:57] VITALS: BP 153/81
--- NOTE | 2016-11-22 16:57 | NUR ---
Pt was scheduled to go for an echo @ about 1615 and while security, transport and staff were present, pt's father began questioning staff in an intense manner re: plan for testings and it appeared to upset Joselo who then abruptly yelled "stop!" and began to get agitated, echo was postponed, Radha Mcdonald APRN updated and on board to delay until pt is less irritable and agitated, pt was then medicated with PRNs and redirected. About 30 mins later pt was still revved and irritable with staff and avoiding eye contact and pacing therefore Radha Mcdonald APRN contacted and additional PRNs given, father left and pt is calming and open to staff instructions, limit setting and redirection.
--- NOTE | 2016-11-22 21:22 | NUR ---
PT HAD AN OUTBURST THIS EVENING, GREW LOUD AND VERY AGITATED. WAS PROVIDED WITH MEDS AND SLEPT IN ROOM FOR MAJORITY OF EVENING. WHEN AWAKE, PT WAS COOPERATIVE AND COMPLIANT WITH STAFF. EKG OBTAINED. SOCIAL WITH PEERS AND ATTENDED WRAP UP MEETING. NO SI REPORTED. PT HAS A STABLE MOOD AND EUTHYMIC AFFECT.
--- NOTE | 2016-11-23 03:31 | NUR ---
PT SLEPT WELL THIS SHIFT.
[2016-11-23 07:34] VITALS: BP 144/79
--- NOTE | 2016-11-23 07:35 | CP SOUTH PROGRESS NOTE PSYCH ---
Psych (Inpt) Progress Note Progress Note Include the following elements, when applicable: Involvement in the active treatment of the patient with behavioral observations of the patient and the patient's response to the treatment. Review of the ongoing treatment process in the context of the treatment plan. Indication of how multi-disciplinary staff members are carrying out the treatment plan. Plans for future interventions and recommendations for revision of the treatment plan. Liaison with other physicians/providers. Progress Note: [I discussed this patient's progress to date, current mental status, treatment process in the context of the treatment plan, and discharge planning with staff/ team in the daily morning inpatient team meeting. I also met with the patient myself in individual session.] SUBJECTIVE: "You like to make soup?" OBJECTIVE: Current Medications Sig/Rosita Start time Last Medication Dose Route Stop Time Status Admin Benzocaine/Menthol 1 ROQUE Q2P PRN 11/20 0245 AC 11/22 PO 2135 Diphenhydramine HCl 50 MG AT BEDTIME NEED.. 11/13 1745 AC 11/22 PO 2134 Stonega Carbonate 600 MG 11/21 08 AC 11/22 PO 0801 Stonega Carbonate 150 MG 11/21 0800 AC 11/22 PO 0801 Stonega Carbonate 900 MG AT BEDTIME 11/17 220 AC 11/22 PO 2134 Lorazepam 1 MG AT BEDTIME NEED.. 11/22 1900 AC PO Lorazepam 2 MG ONE TIME ONE 11/22 1645 DC 11/22 PO 11/22 1646 1648 Lorazepam 0.5 MG Q8P PRN 11/19 1100 AC 11/22 PO 11/25 1159 1618 Melatonin 10 MG 11/21 220 AC 11/22 PO 2135 Metoprolol Tartrate 25 MG BID 11/17 2200 AC 11/22 PO 2135 Olanzapine 2.5 MG 1400 11/18 1400 AC 11/22 PO 1332 Olanzapine 15 MG 11/17 08 AC 11/22 PO 0801 Olanzapine 15 MG 11/15 220 AC 11/22 PO 2134 Olanzapine 5 MG Q4 HRS NEEDED PRN 11/10 1715 AC 11/22 PO 1618 Vital Signs Date Time Temp Pulse Resp B/P Pulse O2 O2 Flow FiO2 Ox Delivery Rate 11/23 733 96.9 102 144/79 11/22 2134 95.9 100 18 153/81 11/22 1607 Room Air Room Air 11/22 1557 100 153/81 11/22 1219 99 145/72 11/22 0801 95.9 98 18 147/77 11/22 0738 95.9 98 147/77 11/22/16 EKG: Sinus Tachycardia, rate of 107. QT: 324; QTc: 433. Otherwise normal EKG. ASSESSMENT: Chart, progress notes, VS, medication list, EKG, labs reviewed. Reviewed patient 's progress with nursing staff. Patient continues to be intrusive with other patients, getting into their space. Patient received one time dose of Ativan 2mg po last evening, prn Ativan 0.5mg po, and Zyprexa 5mg po for agitated behavioral outburst. Prns with good effect. Patient slept overnight with no reported issues. On encounter this morning, patient was alert and oriented x 3. Thought process remained disorganized and distracted. Thought content was odd. Patient made spontaneous remarks, asking this junior copywriter "you like to make soup? 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 With verbal prompting, was redirectable back to conversation. No evidence of internal stimulation. Remains religiously preoccupied. Patient denied auditory and visual hallucinations. Behavior appeared restless, patient observed pacing back and forth in room. When asked directly about his drawing on his bedroom wall from yesterday, patient replied "I was bored, I was trying to cope." Reviewed with patient that he can draw on paper and that drawing on wall is not appropriate behavior on this unit. Patient verbalized understanding, and quickly became intrusive with this junior copywriter asking "what would you do if you were stuck here?" This junior copywriter encouraged the patient to utilize appropriate coping skills, such as attending groups, and drawing on appropriate materials. Patient was agreeable to trialing. Insight and judgement remain limited. Patient denied passive and active suicidal ideation, plans and itnent. He denied feeling hopeless, helpless, worthless and guilty. He denied acute symptoms of anxiety and depression. He denied homicidal ideation. Cognition was grossly intact. Behavior remains consistent with hypomania. Reported sleep and appetite were good. He continues to report tolerating medications well and denied untoward medication effects. No evidence of movement disorder noted. HR remains tachycardic. Dr. Law will continue to follow. Echocardiogram will be attempted today. Met with patient and Christina [facility] Assistant Mechanic, to process with patient his boundaries with other patients, and directed him to keep his own space, as there have been complaints from other patients about the patient invading their space. Much verbal prompting was required to keep patient focused on conversation and reported concerns. Patient verbalized understanding of instruction and was informed that if boundaries do not improve he would be placed back onto 1:1. Patient verbalized understanding. Met with the patient and his father at 4PM today and reviewed the patient's treatment progress to date, and limited response to Zyprexa at 32.5mg daily in divided doses. Reviewed trial of Trilafon, to further target disorganized thoughts and as an adjuct to Stonega to target hypomania. Reviewed the risk/ benefit/SE profiles of Trilafon including metabolic risks and irreversable movement disorders. The patient's father expressed concern over risk of irriversable movement disorder, and was provided education on Cogentin to help counter potential SEs. After close review of medication, the risk/benefit/SE profiles, both the patient and his father agreed to trial of Trilafon, and to discontinuing Zyprexa. PLAN: 1. Discontinue standing and prn Zyprexa. Start Trilafon 4mg BID, and Cogentin 1mg BID. Monitor patient's response to medication, consider increasing over the weekend, if tolerating medication well. 2. Continue Stonega 750mg QAM and 900mg QPM for mood stabilization. Li level scheduled on 11/24/16. Target level 0.8 - 1.0. 3. Monitor patient on unit for safety, mood and psychosis. If patient continues intrusive behaviors with patients will place back on 1:1. 4. Dispo planning per primary team. 5. Echocardiogram completed, results pending.
--- NOTE | 2016-11-23 11:25 | NUR ---
PTS MOOD REMAINS LABILE. HE IS LOUD AT TIMES AND SOME OF HIS PEERS ARE REPORTING THAT HE IS BEING INTRUSIVE. PT IS GENERALLY REDIRECTABLE BY STAFF. HE IS TAKING HIS MEDS AND HE ATTENDS SOME GROUPS BUT IS OFTEN UNABLE TO TOLERATE THE FULL LENGHT OF GROUP. PT DENIED SUICIDAL THOUGHTS WHEN SKED
--- NOTE | 2016-11-23 11:38 | SOCIAL WORKER PROG NOTE PSYCH ---
Social Work Progress Note Progress Note Patient presented calmer today and less agitated then yesterday. Patient started coloring during our meeting and made little to no eye contact with me when we met. Patient appeared very disorganized with racing thoughts and was unable to hold a conversation that was logical and organized. Patient did not discuss discharging today for the first time all week. Patient talked briefly about the incident with his father last evening when he visited but was unable to keep focus and was easily distracted. Patient is aware at this time that we are unsure when he will be discharging home.
[2016-11-23 12:09] VITALS: BP 145/78
--- NOTE | 2016-11-23 14:04 | ECHOCARDIOGRAM REPORT ---
OSMAN AGUAYO Age: 31 : 1985 Gender: M Exam Date: 11/23/2016 13:04 Exam Location: [facility] Ht (in): 69 Wt (lb): 259 BSA: 2.44 BP: 145 / 72 Ordering Physician: DOMINICK LAW MD Referring Physician: DOMINICK LAW MD Technologist: Hugo Kitchen [facility] Room Number: B1-01 Indications: MURMUR/CLICK Rhythm: Sinus Technical Quality: Good FINDINGS Left Ventricle Normal size left ventricle. Mild to moderate concentric left ventricular hypertrophy. Normal left ventricular ejection fraction visually estimated at >65 %. No obvious regional wall motion abnormalities. Normal left ventricular diastolic filling pattern for age. Right Ventricle The right ventricle is normal in size and function. Right Atrium The right atrium is normal in size. Left Atrium The left atrium is normal in size. The interatrial septum is intact. Mitral Valve The mitral valve is normal in structure and function. There is mitral regurgitation. Aortic Valve Structurally normal aortic valve without significant sclerosis or stenosis. There is aortic regurgitation. Tricuspid Valve The tricuspid valve is normal in structure and function. There is no tricuspid regurgitation. Unable to estimate the right ventricular systolic pressure. Pulmonic Valve Pulmonic valve not well visualized, grossly normal. There is a small gradient across the pulmonic valve maximum 14 mmHg and mean 7 mmHg. There is no definite pulmonic regurgitation. Pericardium There is a trace to small pericardial effusion seen. There is no hemodynamic compromise. Great Vessels Normal aortic root dimension. The aortic arch and great vessels are well seen and are normal. CONCLUSIONS Mild to moderate concentric left ventricular hypertrophy. Normal left ventricular ejection fraction visually estimated at >65 The mitral valve is normal in structure and function. Structurally normal aortic valve without significant sclerosis or stenosis. The tricuspid valve is normal in structure and function. Unable to estimate the right ventricular systolic pressure. Pulmonic valve not well visualized, grossly normal. There is a small gradient across the pulmonic valve maximum 14 mmHg and mean 7 mmHg. There is no definite pulmonic regurgitation. Dominick Law M.D. (Electronically Signed) Final Date: 23 November 2016 14:03 MEASUREMENTS (Male / Female) Normal Values 2D ECHO LV Diastolic Diameter PLAX 5.8 cm 4.2 - 5.9 / 3.9 - 5.3 cm LV Systolic Diameter PLAX 3.7 cm 2.1 - 4.0 cm LV Fractional Shortening PLAX 36.2 % 25 - 46 % LV Ejection Fraction 2D Teich 65.1 % IVS Diastolic Thickness 1.4 cm LVPW Diastolic Thickness 1.2 cm LV Relative Wall Thickness 0.4 RV Internal Dim ED PLAX 3.3 cm 1.9 - 3.8 cm LVOT Diameter 2.7 cm Aortic Root Diameter 3.4 cm LA Systolic Diameter LX 4.2 cm 3.0 - 4.0 / 2.7 - 3.8 cm Ascending Aorta Diameter 2.7 cm DOPPLER AV Peak Velocity 130.0 cm/s AV Peak Gradient 6.8 mmHg AV Mean Velocity 78.6 cm/s AV Mean Gradient 3.0 mmHg AV Velocity Time Integral 19.9 cm LVOT Peak Velocity 117.0 cm/s LVOT Peak Gradient 5.5 mmHg LVOT Mean Velocity 68.4 cm/s LVOT Mean Gradient 2.0 mmHg LVOT Velocity Time Integral 25.7 cm LVOT Stroke Volume 147.1 cm AV Area Cont Eq vti 7.4 cm AV Area Cont Eq pk 5.2 cm MV Peak Velocity 114.0 cm/s MV Peak Gradient 5.2 mmHg MV Mean Velocity 71.8 cm/s MV Mean Gradient 2.0 mmHg Mitral E Point Velocity 82.4 cm/s Mitral A Point Velocity 78.0 cm/s Mitral E to A Ratio 1.1 MV PHT Velocity 114.0 cm/s MV Deceleration Vance 630.0 cm/s MV Pressure Half Time 54.3 ms MV Area PHT 4.1 cm MV Deceleration Time 243.0 ms PV Peak Velocity 185.0 cm/s PV Peak Gradient 13.7 mmHg PV Mean Velocity 119.0 cm/s PV Mean Gradient 7.0 mmHg PV Velocity Time Integral 38.9 cm LV E' Lateral Velocity 10.1 cm/s Mitral E to LV E' Lateral Ratio 8.2 LV E' Septal Velocity 10.7 cm/s Mitral E to LV E' Septal Ratio 7.7
[2016-11-23 15:51] VITALS: BP 157/87
[2016-11-23 19:45] VITALS: BP 173/92
--- NOTE | 2016-11-23 21:37 | NUR ---
PT HAS BEEN DISORGANIZED IN BEHAVIOR AND THOUGHTS AT TIMES THROUGHOUT THE SHIFT. PT SPENDS MOST OF TIME IN [place] INTERACTING WITH OTHERS. MOOD IS MOSTLY STABLE, AFFECT IS FULL RANGE, COMMUNICATION IS DISORGANIZED AT TIMES, AND APPETITE IS NORMAL. PT DENIES SI AT THIS TIME.
--- NOTE | 2016-11-24 04:12 | NUR ---
SLEPT WELL UNTIL 0300 BECAME HYPERVERBAL, INTRUSIVE AND DIFFICULT TO REDIRECT. MEDICATED WITH PRN ATIVAN 1MG PO FOR INSOMNIA AND AGITATION.
[2016-11-24 07:30] VITALS: BP 152/83
--- NOTE | 2016-11-24 11:10 | CP SOUTH PROGRESS NOTE PSYCH ---
Psych (Inpt) Progress Note Progress Note Include the following elements, when applicable: Involvement in the active treatment of the patient with behavioral observations of the patient and the patient's response to the treatment. Review of the ongoing treatment process in the context of the treatment plan. Indication of how multi-disciplinary staff members are carrying out the treatment plan. Plans for future interventions and recommendations for revision of the treatment plan. Liaison with other physicians/providers. Progress Note: Stated that he feels good, that no one is bothering him. Stated that he slept well despite staff indicating that he received ativan w/o effect in the middle of the night. Li level 0.6, agreeable to increasing dose to 900mg twice daily. He was less disorganized than he had been last week; still odd at times, pointing to random papers in the office and reading them, saying where was I with regard to his train of thoughts. No AE to trilafon. Pulse has improved, BP remains elevated 150s/80s. echo shows mild/mod LVH. MSE: young aged man, overweight, fair grooming and fair hygiene. No psychomotor agitation/slowing noted. No movement d/o noted. Adequate eye contact. Affect full, mood good. Speech wnl. Thought process linear overall w/ some disorganization and oddness present at times. No evidence of thoughts to harm self/others. Distracted easily, but not responding to internal stimuli. Thought content positive for some over intrusiveness but grossly within normal. Insight improving, judgment fair, improving overall; continues to need redirection and has impaired decision making/impulse control but overall fair. A: 31 y/o man w/ dx schizoaffective d/o, admitted w/ hypomanic/manic episodes; stabilizing on lithium and switched to trilafon, stabilizing slowly. P: Increased lithium to 900mg in the morning and 900mg at night time to target mood lability. Patient agreed. Li level 0.6. Li level for 11/19/16. Will re-eval tmr, if continues to have impaired sleep will titrate up trilafon. Li level on . Cardio will f/up echo results; may need higher dose of BP meds.
[2016-11-24 12:00] VITALS: BP 147/81
--- NOTE | 2016-11-24 12:39 | NUR ---
Overall pt has been calm, pleasant, cooperative and social with peers and staff, does exhibit limited insight and judgement at time and can be intrusive to staff/peer conversations yet, is easily redirectable. Mood stable with full range affect, + appetite, attending groups. [place] level of 0.[address] Jones on arrival, per MD will be adjusting lithium dose.
[2016-11-24 15:38] VITALS: BP 151/84
[2016-11-24 19:15] VITALS: BP 156/88
--- NOTE | 2016-11-24 19:38 | NUR ---
PT IS HYPOMANIC AND HAS POOR BOUNDARIES. LINGERS AROUND THE NURSES STATION BUT APPEARS TO SIMPLY BE BORED. ENCOURAGED TO INTERACT WITH PEERS MORE SO THAN STAFF. KARLEE POLITE AND COMPLIANT WHEN REDIRECTED. VS ARE STABLE AND DENIES ANY SI/HI TO THIS MHW.
--- NOTE | 2016-11-25 04:38 | NUR ---
PT SLEPT UNTIL 0200. MEDICATED WITH ATIVAN 1MG PO AT 0330 MO EFFECT.
[2016-11-25 07:35] VITALS: BP 151/91
[2016-11-25 11:58] VITALS: BP 147/85
--- NOTE | 2016-11-25 13:07 | CP SOUTH PROGRESS NOTE PSYCH ---
Psych (Inpt) Progress Note Progress Note Include the following elements, when applicable: Involvement in the active treatment of the patient with behavioral observations of the patient and the patient's response to the treatment. Review of the ongoing treatment process in the context of the treatment plan. Indication of how multi-disciplinary staff members are carrying out the treatment plan. Plans for future interventions and recommendations for revision of the treatment plan. Liaison with other physicians/providers. Progress Note: Stated that the medicine is helping him b/c he feels sweaty hands which is what Im normally like. Has not been sleeping well at night time, per nursing report however he continues to state he is fine and sleeps well. Pleasant and well related, at times still reading random things in the office but no gross disorganization. Discussed tapering up trilafon night time dose and he was agreeable. MSE: young aged man, overweight; well groomed and with appropriate hygiene. No psychomotor agitation/slowing noted. No movement d/o noted. Adequate eye contact. Affect full, mood good, euphoric at times. Speech wnl. Thought process linear generally, at times interjects odd statements. Thought content positive for some over familiarity but no gross disorganization or delusions. No evidence of thoughts to harm self/others. Distracted easily. No hallucinations. Insight improving, judgment fair, improving overall. A: 31 y/o man w/ dx schizoaffective d/o, admitted w/ hypomanic/manic episodes; stabilizing on lithium and switched to trilafon, stabilizing slowly. P: Increased lithium to 900mg in the morning and 900mg at night time to target mood lability yesterday. Will increase trilafon to 4mg in the morning and 6mg at night time to target residual psychotic sx. No excess sedation noted. f/up w/ any cardio recs during the week.
--- NOTE | 2016-11-25 13:25 | NUR ---
out in community, bored. seems to have trouble concentrating for more than 30seconds. mood is stble, full range of affect. denied thoughts of self harm when asked
[2016-11-25 15:41] VITALS: BP 149/80
[2016-11-25 19:34] VITALS: BP 154/92
--- NOTE | 2016-11-25 21:24 | NUR ---
PT IS IN [place], INTERACTING WELL WITH PEERS/STAFF. PT IS COOPERATIVE AND RELATIVELY CALM. PT MOOD APPEARS STABLE, AFFECT FULL RANGE, COMMUNICATION CAN BE AT TIMES DISORGANIZED, AND APPETITE IS NORMAL. PT DENIES SI AT THIS TIME.
--- NOTE | 2016-11-26 02:52 | NUR ---
PATIENT JUST GIVEN PRN ATIVAN DUE TO INCREASING ANXIETY, SLEEPLESSNESS; HE WOKE UP, WENT TO LOOK AT THE CLOCK, AND THEN IMMEDIATELY WENT TO THE BATHROOM AND TOOK A SHOWER; WHEN HE LEFT THE BATHROOM AND STAFF ATTEMPTED TO REEDUCATE HIM REGARDING UNIT RULES SPECIFYING NO SHOWERS UNTIL AFTER 0600 DUE TO THE NOISE, THEH PATIENT BECAME ARGUMENTATIVE AND STATED "WELL, I JUST DID SO OBVIOUSLY I CAN" WHEN TOLD HE WAS NOT SUPPOSED TO TAKE A SHOWER AT THIS TIME OF NIGHT; PATIENT CURRENTLY AWAKE, GETTING DRESSED, REFUSED TO ATTEMPT TO GO BACK TO SLEEP.
--- NOTE | 2016-11-26 06:56 | NUR ---
PATIENT SLEPT FROM 0345 TO 0545; SINCE THEN HAS BEEN INTRUSIVE, HANGOUT OUT AT THE DESK DESPITE STAFF REQUESTS THAT HE RELAX, AND ALLOW TIME FOR STAFF SHIFT CHANGE, PATIENT IRRITABLE THAT PATIENT PHONE HAS NOT BEEN TURNED ON YET.
--- NOTE | 2016-11-26 07:31 | CP SOUTH PROGRESS NOTE PSYCH ---
Psych (Inpt) Progress Note Progress Note Include the following elements, when applicable: Involvement in the active treatment of the patient with behavioral observations of the patient and the patient's response to the treatment. Review of the ongoing treatment process in the context of the treatment plan. Indication of how multi-disciplinary staff members are carrying out the treatment plan. Plans for future interventions and recommendations for revision of the treatment plan. Liaison with other physicians/providers. Progress Note: [I discussed this patient's progress to date, current mental status, treatment process in the context of the treatment plan, and discharge planning with staff/ team in the daily morning inpatient team meeting. I also met with the patient myself in individual session.] SUBJECTIVE: "I'm feeling good, really." OBJECTIVE: Current Medications Sig/Rosita Start time Last Medication Dose Route Stop Time Status Admin Benzocaine/Menthol 1 ROQUE Q2P PRN 11/20 0245 AC 11/23 PO 2213 Benztropine Mesylate 1 MG 0800,0 11/23 2200 AC 11/25 PO 2131 [place] Carbonate 900 MG 00 11/25 0800 AC 11/25 PO 0927 [place] Carbonate 900 MG AT BEDTIME 11/17 2200 AC 11/25 PO 2131 Lorazepam 1 MG AT BEDTIME NEED.. 11/22 1900 AC 11/26 PO 0250 Lorazepam 0.5 MG Q8P PRN 11/19 1100 DC 11/23 PO 11/25 1159 1834 Melatonin 10 MG 11/21 2200 AC 11/25 PO 2131 Metoprolol Tartrate 25 MG BID 11/17 2200 AC 11/25 PO 2131 Perphenazine 4 MG DAILY 11/26 1000 AC PO Perphenazine 6 MG AT BEDTIME 11/25 2200 AC 11/25 PO 2132 Perphenazine 4 MG 0800,0 11/23 2200 DC 11/25 PO 0928 Vital Signs Date Time Temp Pulse Resp B/P Pulse O2 O2 Flow FiO2 Ox Delivery Rate 11/25 2130 100 154/92 11/25 1934 97.4 100 154/92 11/25 1541 91 149/80 11/25 1158 89 147/85 11/25 0929 96.3 99 18 151/91 11/25 0735 96.3 99 151/91 ASSESSMENT: Chart, progress notes, medication list, labs, Echocardiogram, VS reviewed. Today on encounter with patient, he appeared A&Ox3. He reported no SE from switch to Trilafon, and showed no evidence of movement disorder. Patient's thought process appeared much less disorganized than in previous encounters, and more linear. Eye contact was appropriate. He did not appear distracted during encounter, stayed on track of conversation with this service writer advisor, and answered all questions appropriately. He spoke appropriately about [employer] game, and reported feeling excited that his team won the championship. He recounted the course of the [employer] accurately. He reported improved sleep, reported falling asleep around 10PM and awaking around 2:30AM. 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 Patient verbalized understanding of education. He denied auditory and visual hallucinations. There was no evidence of internal stimulation. No evidence of overt paranoia or deulsions on encoutner. He denied symptoms of acute anxiety and depression. He denied feeling angry, and reported feeling more accepting of remaining in hospital until discharge date is determined. He denied passive and active suicidal ideation, plans and intent. He denied homicidal ideation. Patient reported tolerating medications well and denied untoward medication effects. Reported "sweaty hands" which he reported to be his baseline. Reported liking Trilafon versus Zyprexa, as he reported it to be less sedating. He denied symptoms of tremor, or muscle rigidity. AIMS=0. Patient agreeable to continuing medications. Patient appears to be slowly stabilizing. PLAN: 1. Continue current psychiatric medications: Trilafon 4mg QAM and 6mg (increased on 11/25/16) QPM/ Cogentin 1mg BID/ [place] 900mg BID/ Prn Ativan 1mg QHS. 2. Will follow-up with cardiology about further management for elevated BP/HR, and recommendations regarding result of echocardiogram. 3. Dispo planning per primary team.
[2016-11-26 07:54] VITALS: BP 146/74
[2016-11-26 12:25] VITALS: BP 139/71
--- NOTE | 2016-11-26 13:46 | NUR ---
PT STATED HIS GOAL WAS TO FIND OUT MORE INFORMATION ON WHEN HE WILL BE DISCHARGED. HE HAS BEEN CALM AND COMPLIANT WITH HIS MED REGIME AND TREATMENT PLAN. PT DENIES ANY SUICIDAL THOUGHTS AT THIS TIME
--- NOTE | 2016-11-26 15:07 | SOCIAL WORKER PROG NOTE PSYCH ---
Social Work Progress Note Progress Note Patient presents more oganized, logical and less distracted today. Patient reports having a good weekend on the unit and talked briefly about the [employer] game. Patient brought up discharge briefly but did not press on the topic and was able to move on to different topic quickly. Patient reported feeling good on new medication and reported feeling less sedated. Patient attending groups on the unit, mood appears bright and denies SI/HI/AH/VH at present. If patient continues to show progress we will plan for discharge in the near future with step down to IOP.
[2016-11-26 15:50] VITALS: BP 150/80
[2016-11-26 19:35] VITALS: BP 167/98
--- NOTE | 2016-11-27 04:48 | NUR ---
SLEPT ONLY AFTER GETTING PRN ATIVAN..HYPERVERBAL, INTRUSIVE BELIGERNT AND DIFFICULT TO REDIRECT.
--- NOTE | 2016-11-27 06:04 | NUR ---
CONTACTED CT. COUNSELING IN [place]...[phone] SPOKE WITH MICHAEL WHO VERIFIED LAST DOSE OF METHADONE GIVEN 10/26/16 55MG METHADONE.
[2016-11-27 07:44] VITALS: BP 147/79
--- NOTE | 2016-11-27 08:51 | CP SOUTH PROGRESS NOTE PSYCH ---
Psych (Inpt) Progress Note Progress Note Include the following elements, when applicable: Involvement in the active treatment of the patient with behavioral observations of the patient and the patient's response to the treatment. Review of the ongoing treatment process in the context of the treatment plan. Indication of how multi-disciplinary staff members are carrying out the treatment plan. Plans for future interventions and recommendations for revision of the treatment plan. Liaison with other physicians/providers. Progress Note: [I discussed this patient's progress to date, current mental status, treatment process in the context of the treatment plan, and discharge planning with staff/ team in the daily morning inpatient team meeting. I also met with the patient myself in individual session.] SUBJECTIVE: "I'm feeling great." OBJECTIVE: Current Medications Sig/Rosita Start time Last Medication Dose Route Stop Time Status Admin Benzocaine/Menthol 1 ROQUE Q2P PRN 11/20 0245 AC 11/23 PO 2213 Benztropine Mesylate 1 MG 0800,11/23 220 AC 11/27 PO 1004 [place] Carbonate 900 MG 11/25 08 AC 11/27 PO 1005 [place] Carbonate 900 MG AT BEDTIME 11/17 2200 AC 11/26 PO 2152 Lorazepam 1 MG AT BEDTIME NEED.. 11/22 1900 AC 11/27 PO 0150 Melatonin 10 MG 11/21 2200 AC 11/26 PO 2152 Metoprolol Tartrate 50 MG BID 11/27 2200 AC PO Metoprolol Tartrate 25 MG BID 11/17 2200 DC 11/27 PO 1005 Perphenazine 8 MG 11/27 220 CAN PO Perphenazine 16 MG 11/27 2200 AC PO Perphenazine 4 MG 0800 11/27 0800 DC 11/27 PO 1005 Perphenazine 4 MG DAILY 11/26 1000 DC 11/26 PO 0842 Perphenazine 6 MG AT BEDTIME 11/25 220 DC 11/26 PO 2153 Vital Signs Date Time Temp Pulse Resp B/P Pulse O2 O2 Flow FiO2 Ox Delivery Rate 11/27 1208 88 151/74 11/27 1005 96.7 93 18 147/79 11/27 0744 96.7 93 147/79 11/26 2152 108 167/98 11/26 1935 97.3 108 167/98 11/26 1550 96 150/80 ASSESSMENT: Chart, progress notes, VS, labs, and medication list were reviewed. Met with patient this morning. Presented A&Ox3. Mood euthymic, non-labile. Affect full-range. 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 Mildly odd behavior. When asked what paperwork was inside of this bin, the patient was vague and reported "my papers" and shuffled through them. Appeared mildly paranoid. Patient denied acute symptoms of anxiety and depression. Patient reported sleeping "good," despite nursing reports that the patient slept sporadically and was difficult to redirect overnight. Thought process appeared less distracted than in previous encounters, mildly paranoid but overall linear. Eye contact was appropriate. Patient inquired appropriately about his date of discharge, and was informed that there was not a set date for discharge to date. Patient responded appropriately to this answer, and continued to engage in conversation appropriately. There was no evidence of halima delusions, with mild paranoia. No evidence of internal stimulation. He denied auditory and visual hallucinations. He denied active and passive suicidal ideation, plans and intent. He denied homicidal ideation. Cognition appeared grossly intact. Reported appetite was good. Patient reports tolerating medications well and denied untoward medication effects. No evidence of movement d/o. AIMS=0. Patient agreeable to increasing Trilafon to 16mg QHS for further mood stabilization/paranoia, and discontinuing Trilafon 4mg QAM. Education provided on the importance of adherence to all medications, including Cogentin to prevent sx of movement disorder. Patient verbalized understanding of education. Reviewed with patient scheduled Li level tomorrow morning at 0600. Patient verbalized understanding and agreeable. PLAN: 1. Increase Trilafon from 6mg QHS to 16mg QHS (Reviewed with Dr. Webster). Discontinue Trilafon 4mg QAM; Continue Cogentin 1mg BID; [place] 900mg BID; Ativan 1mg prn. 2. Per Dr. Law cardiology consult, increase Lopressor to 50mg BID, and patient to f/u with Dr. Law outpatient. Outpatient appointment scheduled with Dr. Law on 12/06/16 at 10am. 3. PCP appointment scheduled at [facility] with David Quach APRN on 12/04/16 @ 10: 30am in [facility]. 4. Continue monitoring the patient on unit safety, mood, and psychosis. 5. Tentative discharge tomorrow with [facility] IOP f/u.
--- NOTE | 2016-11-27 09:17 | SOCIAL WORKER PROG NOTE PSYCH ---
Social Work Progress Note Progress Note Patient continues to show progress in treatment. Patient presented alert and oriented X 3, bright mood, calm affect. Patients sister, Anh, called inquiring about patients discharge from the hospital and wanting to plan transportation etc. I informed Anh that at this time we do not have a set date, but anticipate discharge in the near future if he continues to progess. Patient inquired briefly about his discharge but did not perseverate on topic. Patient continues to report tolerating med change well and preferring this medication over his previous medication. Patient talked briefly about other patients on the unit and wanting to keep distance due to feeling some tension and negative influences. Patient inquired about cardiology coming to see him again before discharge and requested that I schedule him with an appointment at [facility] where he has been seen before. He has an appointment scheduled with David Quach APRN on 12/04/16 @ 10:30am in [facility]..
--- NOTE | 2016-11-27 10:09 | NUR ---
DR CLYDE JUNIOR OFFICE NOTIFIED OF THE POSSILIBILTY THAT PT WILL BE D/C TOMORROW. REQUEST THAT HE CALL THE UNIT WITH HIS RECOMMENDATIONS FOR DISCHARGE
--- NOTE | 2016-11-27 11:23 | PN- Cardiology ---
Subjective Subjective: The patient remains mildly tachycardic. His EKG is otherwise normal. His echocardiogram was basically normal except for mild LVH but did show a small gradient across the pulmonic valve, which is higher than normally expected. The valve itself did not appear abnormal anatomically. Objective Vital Signs and I&Os Vital Signs Date Time Temp Pulse Resp B/P Pulse O2 O2 Flow FiO2 Ox Delivery Rate 11/27 1005 96.7 93 18 147/79 / 0744 96.7 93 147/79 11/26 2152 108 167/98 11/26 1935 97.3 108 167/98 02/06 1550 96 150/80 02/ 1225 88 139/71 Current Medications: Current Medications Sig/Rosita Start time Last Medication Dose Route Stop Time Status Admin Benzocaine/Menthol 1 ROQUE Q2P PRN 11/20 0245 AC 11/23 PO 2213 Benztropine Mesylate 1 MG 0800,2200 11/23 2200 AC 11/27 PO 1004 [place] Carbonate 900 MG 0800 11/25 0800 AC 11/27 PO 1005 [place] Carbonate 900 MG AT BEDTIME 11/17 2200 AC / PO 2152 Lorazepam 1 MG AT BEDTIME NEED.. 11/22 1900 AC 11/27 PO 0150 Melatonin 10 MG 2200 11/21 2200 AC 11/26 PO 2152 Metoprolol Tartrate 25 MG BID 11/17 2200 AC 11/27 PO 1005 Perphenazine 8 MG 0 11/27 2200 CAN PO Perphenazine 16 MG 2200 11/27 2200 AC PO Perphenazine 4 MG 0800 11/27 0800 DC 11/27 PO 1005 Perphenazine 4 MG DAILY 11/26 1000 DC 11/26 PO 0842 Perphenazine 6 MG AT BEDTIME 11/25 2200 DC / PO 2153 Results Recent Imaging Studies: CONCLUSIONS Mild to moderate concentric left ventricular hypertrophy. Normal left ventricular ejection fraction visually estimated at >65 The mitral valve is normal in structure and function. Structurally normal aortic valve without significant sclerosis or stenosis. The tricuspid valve is normal in structure and function. Unable to estimate the right ventricular systolic pressure. Pulmonic valve not well visualized, grossly normal. There is a small gradient across the pulmonic valve maximum 14 mmHg and mean 7 mmHg. There is no definite pulmonic regurgitation. Burke Law M.D. (Electronically Signed) Final Date: 23 November 2016 14:03 Assessment/Plan Assessment/Plan The patient remains mildly tachycardic I would recommend increasing his Lopressor to 50 mg twice daily on discharge. 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 I would like to try and get his Tana records from when he was child if that is possible. I will see him as an outpatient and follow-up on that. Continue telemetry? Not applicable
[2016-11-27 12:08] VITALS: BP 151/74
--- NOTE | 2016-11-27 14:18 | NUR ---
PT HAS REMAINED CALM AND COOPERATIVE THROUGHOUT THIS SHIFT. HE IS ATTENDING GROUPS AND HIS BEHAVIOR AND CONVERSATION HAVE BEEN APPROPRIATE. PT DENIES ANY SUICIDAL THOUGHTS AND HE IS LOOKING FORWARD TO GOING HOME THIS WEEK
[2016-11-27 15:53] VITALS: BP 147/71
--- NOTE | 2016-11-27 19:12 | SOCIAL WORKER PROG TO GOALS ---
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, supportive family, engaged in out pt tx Physical Limitations (Interventions): none reported Patient Identified Trmt Goals: "I am not sure exactly why I am here." Discharge Plan: IOP Problem/Goals #1 Problem #1: psychosis Goal (Short Term): Be free of false perceptions and experience things as others do Be free of false beliefs Be free of thoughts that others are out to get you Spend 2-3 hours each week visiting/socializing with others Report feeling comfortable spending time with others Goal (Family Dentist): Attend at least 3 groups daily while in the hospital Have familly meeting while in the hospital Explore and resolve issues related to traumatic events in lifetime Share details of the trauma with therapist, as able to do so Reframe negative perceptions, when possible, and focus on finding meaning and drawing strength from the event Learn about typical care home/residual effects of traumatic life experiences Progress: Patient presents oriented X3, calm, logical and organized. Patient is preparing for discharge in the near future. Patient attending groups on the unit and participating appropriately.
[2016-11-27 20:22] VITALS: BP 150/83
--- NOTE | 2016-11-27 22:40 | NUR ---
PT LESS MANIC. PT REDIRECTABLE. HE DENIES SI, HI, AH, VH, OR PARANOID IDEATION. PT EATING WNL. NO PROBLEMS OF BOWEL OF BLADDER. PT SOCIAL.
--- NOTE | 2016-11-28 04:46 | NUR ---
PT SLEPT UNTIL 414. UP AND SOCIALIZING WITH STAFF AFTER. PT IS FORWARD-THINKING.
[2016-11-28 07:34] VITALS: BP 147/70
--- NOTE | 2016-11-28 07:35 | NUR ---
PT IS SCHEDULED FOR D/C TO [facility] TODAY. HE WILL FOLLOW UP WITH [facility]. HE REPORTS AND DEMONSTRATES IMPROVEMENT IN HIS MOOD AND ABILITY TO FUNCTION. HE IS CALM AND FRIENDLY WITH HIS INTERACTIONS WITH STAFF AND PEERS. HE IS COMPLIANT WITH HIS MED REGIME. HE DENTIFIES HIS SUPPORTS AND WHEN ASKED HE DENIED ANY THOUGHTS OF SUICIDE OR SELF HARM. PT IS GIVEN EDUCATION ON MANAGING HIS ILLNESS AND ON SUICIDE PREVENTION
--- NOTE | 2016-11-28 07:56 | DISCHARGE SUMMARY REPORT-PSYCH ---
Visit Information Visit Dates/Diagnosis' Admission Date: 11/09/16 Discharge Date: 11/28/16 Reason for Admission: Gustavo/Agitation/Psychosis Psy Discharge Primary Diag: Schizoaffective disorder, bipolar type, current episode mixed, severe, with psychotic features Psy Discharge Secondary Diag: HTN; hx heart murmur; possible valvular disease during childhood. Hospital Course Significant Lab Findings: Lab HDL Cholesterol 30 mg/dL L 11/13/16 0609 Hemoglobin A1c 5.0 11/13/16 0609 LDL Cholesterol, Calc 55 mg/dL L 11/13/16 0609 TSH 3.250 uIU/mL 11/08/16 1410 Chambers 0.6 mmol/L 11/20/16 0600 Chambers 0.6 mmol/L 11/22/16 0620 Chambers 0.6 mmol/L 11/24/16 0525 Chambers 0.8 mmol/L 11/28/16 0426 EKG 11/22/2016: Sinus tachycardia, with rate of 107. QT= 324; RYp=752; P=50; QRS= 34; T=37. Otherwise normal EKG confirmed by crm marketing manager Dr. Burke Law. Echocardiogram 11/23/2016: CONCLUSIONS: Mild to moderate concentric left ventricular hypertrophy. Normal left ventricular ejection fraction visually estimated at >65 The mitral valve is normal in structure and function. Structurally normal aortic valve without significant sclerosis or stenosis. The tricuspid valve is normal in structure and function. Unable to estimate the right ventricular systolic pressure. Pulmonic valve not well visualized, grossly normal. There is a small gradient across the pulmonic valve maximum 14 mmHg and mean 7 mmHg. There is no definite pulmonic regurgitation. Course Complications: Persistent hypertension and tachycardia. Consultations: The patient was seen for admission history and physical by programming specialist Dr. Alfonso Villarreal. Please see his note for additional information. The patient was consulted by programming specialist Dr. Alyssa Issa for persistent tachycardia and hypertension. EKG was completed which was consistent for sinus tachycardia. Lopressor 12.5mg po was started twice a day. Dr. Alyssa Issa additionally recommended outpatient cardiology follow-up and echocardiogram. The patient was consulted by crm marketing manager Dr. Burke Law for continued tachycardia and hypertension after Lopressor was increased to 25mg po twice a day by Dr. Fanta Novoa from psychiatry for persistent tachycardia and hypertension. A repeat EKG, and an echocardiogram were ordered by crm marketing manager Dr. Burke Law and obtained. EKG showed sinus tachycardia with a rate of 107. Echocardiogram showed mild/moderate left ventricular hypertrophy. Per Dr. Law recommendation, Lopressor was increased to 50mg po twice a day, and an outpatient follow-up appointment was scheduled for the patient with Dr. Law on 12/06/16 at 10AM. Allergies: Coded Allergies: NO KNOWN ALLERGIES (10/22/11) Hospital Course/TX Response: The patient was monitored on the unit for safety, gustavo/hypomania, mood, and psychosis. He participated in multimodal treatments on the unit. Prior to this inpatient psychiatric hospitalization, patient had been nonadherent to prescribed medications of Zyprexa and Chambers. It was unclear for how long the patient had been medication nonadherent. On initial presentation to [facility]PS the patient exhibited acute agitation, psychosis, and gustavo. The patient was restarted on Chambers 300mg twice a day and Zyprexa 5mg twice a day. During the hospital course, Chambers was uptitrated to 900mg twice a day for mood stabilization. Zyprexa was increased to 32.5mg daily (15mg every morning/2.5mg every afternoon/15mg at bedtime) with minimal effect on targeting psychosis. Zyprexa 32.5mg daily was discontinued and Trilafon 4mg twice a day was started to further target psychosis, and additionally Cogentin 1mg twice a day was started to prevent EPS. Trilafon was increased to 4mg every morning and 6mg every night; however, the patient continued to struggle with insomnia due to hypomania. Trilafon 4mg every morning was discontinued, and Trilafon was dosed at bedtime at a total of 16mg (at bedtime). Cogentin 1mg twice a day was continued to prevent EPS. Melatonin 10mg and Ativan 1mg were started at bedtime for insomnia. Lopressor 12.5mg twice a day was additionally added by Dr. Alyssa Issa for persistent tachycardia and hypertension. Lopressor was increased to 50mg twice a day per crm marketing manager Dr. Jonathan Law's recommendation. The patient reported tolerating all medications well and denied untoward medication effects. There was no evidence of movement disorder during hospital course. AIMS =0. During the hospital course, the patient's mood and affect improved. Psychosis and hypomania remitted. A family meeting was held with the patient, his sister, his father, Kasie TriplettLUDY, and this com writer. The patient's treatment progress , medication regimen, level of safety and discharge planning were reviewed and discussed. The patient's family and the patient were in favor of discharge recommendation for the patient to follow-up with [facility] level of care post- discharge at [facility]. The patient's father was in agreement to monitor the patient's medications and assist him with daily medication administration post- discharge, given the patient's history of medication nonadherence. The patient was also in favor of this. On the date of discharge, 11/28/2016, the patient presented alert and oriented to person, place, time and situation. He showed good behavioral and physical control. There was no evidence of odd behaviors. Speech was normal in rate, tone and volume. Eye contact was appropriate. Patient was able to engage appropriately in conversation, and answered all questions appropriately. Affect was calm and full-range. Mood appeared euthymic, and patient described his mood as good, I feel better. Im excited to go home. Im gonna stay on my medications. Theyre helping. Patient showed improved judgement and insight into what will be required to manage his psychiatric symptoms. Patient appeared future oriented and verbalized commitment to attending IOP program post- discharge, stating I know my job isnt going anywhere and itll be waiting for me once I finish IOP. He denied physical complaints. He denied feeling hopeless , helpless, worthless, and guilty. He reported improved sleep of approximately 6 hours/night, which was verified by nursing staff. Reported his appetite was good. He reported anxiety of 1/10 (10 being the worst) and depression/sadness of 0/10 (10 being the worst). He denied active and passive suicidal ideation, plans and intent. He denied homicidal ideation. He stated and also believed he will not harm himself or others. He identified protective factors of my dad, my sister, my cousins, and my job, its a great opportunity for me financially. goal-directed. Thought content was appropriate. There was no evidence of paranoia, halima delusions, or internal stimulation. Cognition was grossly intact. Patient reported tolerating all medications well and denied untoward medication effects. Psychoeducation was provided to the patient on the importance of taking all medications consistently and as prescribed to prevent a relapse of symptoms, and until otherwise instructed by IOP medical provider. Additionally, the patient was educated on the importance of taking Cogentin as prescribed with Trilafon to prevent risk of EPS. Patient verbalized understanding of all education. There was no evidence of movement disorder. AIMS =0. Patient reported feeling safe and ready for discharge. All discharged instructions, prescriptions and outpatient referrals were reviewed with the patient, his sister, and sister's in detail on the date of discharge. All parties verbalized understanding of discharge instructions/recommendations/prescribed medications. Discharge HBIPS - Tobacco Use Treatment Offered Post DC Medications Offered: NA-No Tob Use >30 days Post DC Tobacco Treatment Plan: NA-No Tobacco use >30days - EtOH/Drug Use D/O Treatment Offered Post DC Medications Offered: NA-No EtOH/Drug Use D/O Post DC EtOH/SubAbuse TX Plan: NA-No EtOH/Drug Use D/O Metabolic Screening - Screen if on a Neuroleptic Medication - Metabolic screening should include: - Blood Pressure, BMI, Glucose or Hgb A1c, & a - Lipid profile from within the past 365 days. Metabolic Screening () Not Applicable, patient not on a neuroleptic. OR ([X]) Patient on a neuroleptic(s) . Enter below results for Glucose or Hemoglobin A1C, and lipid panel if obtained during the last 365 days. BMI: 38.200 Blood Pressure: 147/70 Laboratory Results (If applicable): Lab Cholesterol 99 MG/DL 11/13/16 0609 Cholesterol/HDL Ratio 3 % 11/13/16 06 HDL Cholesterol 30 mg/dL L 11/13/16 0609 Hemoglobin A1c 5.0 11/13/16 0609 LDL Cholesterol, Calc 55 mg/dL L 11/13/16 0609 Triglycerides 74 mg/dL 11/13/16 0609 Discharge Instructions General Discharge Information Discharge Medications: Discharge Medications- (Dose, route, freq, indication): HOME MEDICATION LIST START taking these NEW Home Medications: Metoprolol Tartrate Dose: ORAL, TWICE DAILY for Qty: 28 Call-In to (Metoprolol 50 Milligram HTN/tachycardia Refills: 0 Pharm 1 Tartrate) 50 MG TABLET Perphenazine 16 MG TABLET Dose: ORAL, 2200 for clear Qty: 14 Call-In to 16 Milligram thoughts Refills: 0 Pharm 1 Take 1 tablet (16mg) by mouth at bedtime. Lorazepam Dose: ORAL, 2200 for Qty: 14 Call-In to (Lorazepam) 1 MG 1 Milligram anxiety/insomnia Refills: 0 Pharm 1 TABLET Chambers Carbonate Dose: ORAL, SEE INSTRUCTIONS Qty: 84 Call-In to (Chambers Carbonate) 1,800 for mood stabilization Refills: 0 Pharm 1 300 MG CAPSULE Milligram Take 3 capsules (900mg) by mouth every morning and 3 capsules (900mg) at bedtime. Benztropine Mesylate Dose: ORAL, 0800,2200 for EPS Qty: 28 Call-In to (Benztropine 1 Milligram prevention Refills: 0 Pharm 1 Mesylate) 1 MG TABLET Melatonin Dose: ORAL, 2200 for insomnia Qty: 0 None (Melatonin) 5 MG 10 Milligram Purchase over the Refills: 0 TABLET counter. Take 2 tablets (10mg) by mouth at bedtime. 1: [id number], [address] [place] [address] [facility] website reviewed. Discharge medications were called into below pharmacy today. Patient was advised to purchase Melatonin OTC. He was advised to take 2 tablets (10mg) by mouth at bedtime for insomnia. Patient verbalized understanding of instruction. [id number] [address] [place] [address] Multiple Neuroleptics: ([X]) Not Applicable OR Document below three failed attempts at monotherapy, or a plan to taper to monotherapy, or augmentation of Clozapine. () Patient's Diet: Regular. Patient's Activity: No restrictions. DC Disposition: Patient to return to home and father and sister. Recommendations: The patient was advised to please take his medications as prescribed. He was advised to follow-up with all scheduled appointments with PCP, Dr. Law from cardiology, and [facility] intake and treatment. He was advised that in the event of an emergency, to call 911/go to nearest emergency department. The patient, his sister, and his sister's all verbalized understanding of all instructions. Referred To: [facility] [address], [address] [place] [address] [phone] Appointment scheduled with PCP, Andreia Quach APRN on 12/04/16 at 10:30AM. [facility] [address] [place] [address], [address] [place] [address] [phone] Appointment scheduled with crm marketing manager Dr. Burke Law on 12/06/16 at 10AM. [address] [address] [phone] Intake appointment scheduled on 11/28/16 at 9:30AM. Copies To: MELVI RAY,ANDREIA Jay; [facility]; VERNON BOSE,BURKE Gonzalez
--- NOTE | 2016-11-28 08:22 | CP SOUTH PROGRESS NOTE PSYCH ---
Psych (Inpt) Progress Note Progress Note Include the following elements, when applicable: Involvement in the active treatment of the patient with behavioral observations of the patient and the patient's response to the treatment. Review of the ongoing treatment process in the context of the treatment plan. Indication of how multi-disciplinary staff members are carrying out the treatment plan. Plans for future interventions and recommendations for revision of the treatment plan. Liaison with other physicians/providers. Progress Note: [I discussed this patient's progress to date, current mental status, treatment process in the context of the treatment plan, and discharge planning with staff/ team in the daily morning inpatient team meeting. I also met with the patient myself in individual session.] SUBJECTIVE: "I feel good, I feel better. I'm excited to go home." OBJECTIVE: Laboratory Tests 11/28 425 Toxicology Comfrey (0.6 - 1.2 mmol/L) 0.8 Current Medications Sig/Rosita Start time Last Medication Dose Route Stop Time Status Admin Benzocaine/Menthol 1 ROQUE Q2P PRN 11/20 0245 AC 11/23 PO 2213 Benztropine Mesylate 1 MG 799,11/23 AC 11/28 PO 0733 [place] Carbonate 900 MG 11/25 AC 11/28 PO 0732 [place] Carbonate 900 MG AT BEDTIME 11/17 2199 AC 11/27 PO 2148 Lorazepam 1 MG 11/28 AC PO Lorazepam 1 MG AT BEDTIME NEED.. 11/22 1900 DC 11/27 PO 2258 Melatonin 10 MG 11/21 AC 11/27 PO 2148 Metoprolol Tartrate 50 MG BID 11/27 2199 AC 11/28 PO 0732 Metoprolol Tartrate 25 MG BID 11/17 2199 DC 11/27 PO 1005 Perphenazine 8 MG 11/27 CAN PO Perphenazine 16 MG 11/27 AC 11/27 PO 2148 Perphenazine 4 MG 11/27 08 DC 11/27 PO 1005 Vital Signs Date Time Temp Pulse Resp B/P Pulse O2 O2 Flow FiO2 Ox Delivery Rate 11/28 733 96.7 87 147/70 11/28 731 97 150/83 11/27 2148 97 150/83 11/27 2021 98.4 97 150/83 11/27 1553 90 147/71 11/27 1208 88 151/74 11/27 1005 96.7 93 18 147/79 ASSESSMENT: Met with the patient today on the date of discharge. Patient presented alert and oriented to person, place, time and situation. He showed good behavioral and physical control. There was no evidence of odd behaviors. Speech was normal in rate, tone and volume. Eye contact was appropriate. Patient was able to engage appropriately in conversation, and answered all questions appropriately. Affect was calm and full-range. Mood appeared euthymic, and patient described his mood as good, I feel better. Im excited to go home. Im gonna stay on my medications. Theyre helping. Patient showed improved judgement and insight into what will be required to manage his psychiatric symptoms. Patient appeared future oriented and verbalized commitment to attending IOP program post- discharge, stating I know my job isnt going anywhere and itll be waiting for me once I finish IOP. He denied physical complaints. He denied feeling hopeless , helpless, worthless, and guilty. He reported improved sleep of approximately 6 hours/night, which was verified by nursing staff. Reported his appetite was good. He reported anxiety of 1/10 (10 being the worst) and depression/sadness of 0/10 (10 being the worst). He denied active and passive suicidal ideation, plans and intent. He denied homicidal ideation. He stated and also believed he will not harm himself or others. He identified protective factors of my dad, my sister, my cousins, and my job, its a great opportunity for me financially. goal-directed. Thought content was appropriate. There was no evidence of paranoia, halima delusions, or internal stimulation. Cognition was grossly intact. Patient reported tolerating all medications well and denied untoward medication effects. Psychoeducation was provided on the importance of taking all medications consistently and as prescribed to prevent a relapse of symptoms, or until otherwise instructed by IOP medical provider. Additionally, patient was educated on the importance of taking Cogentin as prescribed with Trilafon to prevent risk of EPS. Patient verbalized understanding of all education. There was no evidence of movement disorder. AIMS=0. Patient reported feeling safe and ready for discharge. All discharged instructions, prescriptions and outpatient referrals were reviewed with the patient, his sister, and sister's in detail. All parties verbalized understanding of discharge instructions/recommendations. PLAN: 1. Patient to discharge today to home, father and sister. 2. Patient to f/u at [facility] today, 11/28/16 at 9:30AM for intake. 3. Appointment scheduled with PCP, David Quach APRN on 12/04/16 at 10:30AM. Patient verbalized understanding of appointment. 4. Appointment scheduled with line up examiner Dr. Burke Law on 12/06/16 at 10AM. Patient verbalized understanding of appointment. 5. Patient advised to please take medications. All discharge prescriptions [facility] called [id number] ([phone]), this morning. 6. In the event of an emergency, call 911/go to nearest emergency department. Patient verbalized understanding of all instruction.
[2016-11-28] MEDS ORDERED: METOPROLOL TART50 M1 PO (08:23)
[2016-11-28] MEDS ORDERED: PERPHENAZINE PO (08:23)
[2016-11-28] MEDS ORDERED: LORAZEPAM1 M1 PO (08:24)
[2016-11-28] MEDS ORDERED: BENZTROPINE MESY1 M1 PO (08:25)
[2016-11-28] MEDS ORDERED: LITHIUM CARBON300 M4 PO (08:25)
[2016-11-28] MEDS ORDERED: MELATONIN5 M7 PO (08:26)
--- NOTE | 2016-11-28 09:24 | SOCIAL WORKER PROG NOTE PSYCH ---
Social Work Progress Note Progress Note Patient to discharge home today. Patient presents calm, logical and oriented x3 today. Patient has made significant improvement since entering hospital and appears to be responding to med change well with no reported side effects. Patient has intake at [facility] today at 9:30am and then will return home with family. Patients family is in agreement with discharge plan and agree to help monitor patients medication and make sure patient attends IOP group 3x week. Patient offers no complaint at present and is able to contract for safety. Patient plans to return to work in near future as well and is looking forward to this.
== END 2016-11-28 09:22 | DRG 885 ==
LOC: ERH 13:15 → ENPENDDIS 11-09 11:24 → CP SOUTH 11-09 11:24 → ERHI 11-09 11:24 → CP SOUTH 11-09 14:39
PROVIDERS: Physician Assistant Medical; Registered Nurse Psychiatric/Mental Health; ADMIT Psychiatry & Neurology Psychiatry
DX: F25.0 Schizoaffective disorder, bipolar type (principal); I10 Essential (primary) hypertension; R01.1 Cardiac murmur, unspecified
CPT/HCPCS: 36415; 80307; 87086; 93005; 93010; 93306; 96372; G0480; J1200; J1630; J3230; Q0175; Q2036